=== PATIENT | female | born 1950 | race Caucasian/White ===

== ENCOUNTER 2023-01-14 16:14 | Observation (INO) | payer BC, MEDICARE ==
[2023-01-14 16:56] LABS: Absolute Neutrophil Ct (ANC) 4.17 x10^3/uL (1.4-6.9); Basophil (Absolute #) 0.07 x10^3/uL (0-0.4); Eosinophil % 3.1 % (0.00-5.0); Eosinophil (Absolute #) 0.22 x10^3/uL (0-0.5); Hematocrit 29.7 % (35-47); IMMATURE GRAN # 0.02 x10^3u/L (0.00-0.03); IMMATURE GRAN % 0.3 % (0.00-0.4); Lymphocyte (Absolute #) 2.09 x10^3/uL (1.0-4.6); Lymphocytes % 29.1 % (24.0-44.0); Mean Cell Volume 71.4 fL (78-100); Mean Corpuscular Hemoglobin 21.6 pg (26-32); Mean Corpuscular Hgb Concent. 30.3 g/dL (32-36); Mean Platelet Volume 8.6 fL (7.5-11.0); Monocyte (Absolute #) 0.61 x10^3/uL (0.0-1.3); Monocytes % 8.5 % (0.0-12.0); Platelet Count 501 x10^3/uL (150-450); Red Blood Count 4.16 x10^6/uL (4.1-5.4); Red Cell Distribution Width 27.4 % (11.5-14.0); White Blood Count 7.2 x10^3/uL (4.0-10.5)
[2023-01-14 17:19] LABS: ALBUMIN 4.1 g/dL (3.5-5.0); BILIRUBIN,TOTAL 0.5 mg/dL (0.2-1.3); Creatinine 1 1.05 mg/dL (0.52-1.04); EST GLOMERULAR FILTRATION RATE 54.6 ML/MIN; Potassium 4.3 mmol/L (3.5-5.1); Total Protein 7.3 g/dL (6.3-8.2)
[2023-01-14] MEDS ORDERED: Mylicon 80MG PO PRN (17:19)
[2023-01-14] MEDS ORDERED: ZOFRAN ODT 4 MG PO PRN (17:27)
[2023-01-14 17:35] LABS: INFLUENZA A NEGATIVE (NEGATIVE); INFLUENZA B NEGATIVE (NEGATIVE); RESPIRATORY SYNCTIAL VIRUS NEGATIVE (NEGATIVE); SARS-CoV-2 Xpert Express NEGATIVE (NEGATIVE)
[2023-01-14 19:18] LABS: Slide Review 1 YES
[2023-01-14 20:20] LABS: Appearance Clear (Clear); Bacteria Moderate /HPF (None Seen); Bilirubin Negative (Negative); Blood Negative (Negative); Epithelial Cells None Seen /HPF (None Seen); Glucose, Urine Negative (Negative); Ketones Negative (Negative); Leukocyte Esterase Large (Negative); Nitrite Negative (Negative); Ph 5.5 (4.6-8.0); Protein,Urine Dip Negative (Negative); RBC 0-2 /HPF (0-5); Specific Gravity <=1.005 (1.005-1.030); Urobilinogen 0.2 mg/dL (0.2); WBC 21-50 /HPF (0-5)
[2023-01-14 20:35] LABS: ADD URINE CULTURE? YES (NO)
[2023-01-14] MEDS: MELATONIN PO SCH (21:43)
[2023-01-14] MEDS: Lopressor 50 MG PO SCH (21:43)
--- NOTE | 2023-01-15 07:08 | PCM.HP.ADD ---
Addendum to History & Physical - History & Physical Addendum Addendum to History & Physical: This certifies that the History & Physical in the electronic chart reflects the current health status of the patient. If there are changes in the H&P these changes/exceptions are listed as follows.
[2023-01-15 07:52] LABS: Hematocrit 27.7 % (35-47); Hemoglobin 8.4 g/dL (12.0-16.0); Mean Cell Volume 70.7 fL (78-100); Mean Corpuscular Hemoglobin 21.4 pg (26-32); Mean Corpuscular Hgb Concent. 30.3 g/dL (32-36); Mean Platelet Volume 8.8 fL (7.5-11.0); Platelet Count 465 x10^3/uL (150-450); Red Blood Count 3.92 x10^6/uL (4.1-5.4); Red Cell Distribution Width 27.2 % (11.5-14.0); White Blood Count 6.6 x10^3/uL (4.0-10.5)
[2023-01-15] MEDS: ROCEPHIN 1 Gm-D5w 50 ml Bag** 1 G/50 ML IVPB IV SCH (08:42)
[2023-01-15 08:43] LABS: Slide Review YES
[2023-01-15 08:54] LABS: ANION GAP 9.6 MEQ/L (5-15); BLOOD UREA NITROGEN 11 mg/dL (7-17); CHLORIDE 104 mmol/L (98-107); Carbon Dioxide 30 mmol/L (22-30); Creatinine 1 0.57 mg/dL (0.52-1.04); EST GLOMERULAR FILTRATION RATE > 60.0 ML/MIN; Glucose 115 mg/dL (74-106); Potassium 3.6 mmol/L (3.5-5.1); SODIUM 140 mmol/L (137-145)
[2023-01-15] MEDS ORDERED: NON-FORMULARY ITEM (Apixaban [Eliquis] 5 MG Tablet) PO SCH (10:00)
[2023-01-15] MEDS ORDERED: NON-FORMULARY ITEM (Atorvastatin Calcium [Atorvastatin Calcium] 10 MG Tablet) PO SCH (10:00)
[2023-01-15] MEDS ORDERED: NON-FORMULARY ITEM (Fluoxetine Hcl [Fluoxetine Hcl] 40 MG Capsule) PO SCH (10:00)
[2023-01-15] MEDS ORDERED: Cardizem CD PO SCH (10:00)
[2023-01-15] MEDS: Lopressor 50 MG PO SCH (11:11)
[2023-01-15] MEDS: Cozaar 50 MG PO SCH (11:12)
[2023-01-15] MEDS: Protonix 40MG Tablet PO SCH (11:18)
[2023-01-15] MEDS: Prozac 20 MG PO SCH (11:18)
[2023-01-15] MEDS: ELIQUIS 2.5 MG TABLET PO SCH ×2 (11:18→21:50)
[2023-01-15] MEDS: Zocor 10MG PO SCH (11:18)
[2023-01-15] MEDS: LASIX 20 MG PO SCH (11:19)
[2023-01-15] MEDS: Docusate Sodium 100 MG PO SCH (11:19)
--- NOTE | 2023-01-15 11:25 | PCM.NOTE ---
Date and Time: 01/15/23 1120 Subjective Assessment: She has no complaints today. Overnight her HR was in the 60s (was 51 when arrived yesterday). In office yesterday on EKG was of course 38 bpm, afib. - Review of Systems Constitutional: No Fever Abdominal/Gastrointestinal: No Vomiting Objective Exam General Appearance: no apparent distress, alert Neurologic Exam: cooperative, normal mood/affect, other (halting speech and sometimes skips words) Skin Exam: normal color, warm, dry, No rash Eye Exam: eyes nml inspection Ears, Nose, Throat Exam: moist mucous membranes Neck Exam: normal inspection Respiratory Exam: normal breath sounds, lungs clear, No crackles/rales, No rhonchi, No wheezing Cardiovascular Exam: regular rate/rhythm, normal heart sounds, No murmur Gastrointestinal/Abdomen Exam: soft, normal bowel sounds, No tenderness, No distention, No mass, No guarding, No rebound Extremity Exam: normal inspection, No pedal edema, No swelling Back Exam: normal inspection, No rash OBJECTIVE DATA Vital Signs: Vital Signs - 24 hr Temp Pulse Resp BP Pulse Ox 01/15/23 11:10 97.8 F 63 16 151/71 94 L 01/15/23 06:37 98.2 F 63 14 171/81 95 01/15/23 04:00 97.1 F 63 19 131/77 95 01/14/23 23:41 98.1 F 61 16 145/74 96 01/14/23 20:00 97.9 F 61 16 143/70 96 01/14/23 16:42 97.7 F 52 L 17 147/70 96 Pain Assessment - Last Documented Pain Intensity 0 Intake and Output: Intake & Output 01/12/23 01/13/23 01/14/23 01/15/23 11:59 11:59 11:59 11:59 Intake Total 480 Balance 480 Weight 79.4 kg Lab Results: Lab Results-Last 24 Hours 01/14/23 01/14/23 01/14/23 Range/Units 16:50 16:50 16:50 WBC 7.2 (4.0-10.5) x10^3/uL RBC 4.16 (4.1-5.4) x10^6/uL Hgb 9.0 L (12.0-16.0) g/dL Hct 29.7 L (35-47) % MCV 71.4 L (78-100) fL MCH 21.6 L (26-32) pg MCHC 30.3 L (32-36) g/dL RDW 27.4 H (11.5-14.0) % Plt Count 501 H (150-450) x10^3/uL MPV 8.6 (7.5-11.0) fL Gran % 58.0 (36.0-66.0) % Immature Gran % (Auto) 0.3 (0.00-0.4) % Nucleat RBC Rel Count 0.0 (0.00-0.1) % Eos # (Auto) 0.22 (0-0.5) x10^3/uL Immature Gran # (Auto) 0.02 (0.00-0.03) x10^3u/L Absolute Lymphs (auto) 2.09 (1.0-4.6) x10^3/uL Absolute Monos (auto) 0.61 (0.0-1.3) x10^3/uL Absolute Nucleated RBC 0.00 (0.00-0.01) x10^3u/L Lymphocytes % 29.1 (24.0-44.0) % Monocytes % 8.5 (0.0-12.0) % Eosinophils % 3.1 (0.00-5.0) % Basophils % 1.0 (0.0-0.4) % Absolute Granulocytes 4.17 (1.4-6.9) x10^3/uL Basophils # 0.07 (0-0.4) x10^3/uL Sodium 141 (137-145) mmol/L Potassium 4.3 (3.5-5.1) mmol/L Chloride 103 (98-107) mmol/L Carbon Dioxide 31 H (22-30) mmol/L Anion Gap 11.0 (5-15) MEQ/L BUN 14 (7-17) mg/dL Creatinine 1.05 H (0.52-1.04) mg/dL Estimated GFR 54.6 ML/MIN Glucose 107 H (74-106) mg/dL POC Glucometer (74 to 106) mg/dL Calcium 9.0 (8.4-10.2) mg/dL Total Bilirubin 0.50 (0.2-1.3) mg/dL AST 26 (14-36) U/L ALT 20 (0-35) U/L Alkaline Phosphatase 70 (38-126) U/L Troponin I < 0.012 (0.000-0.034) ng/mL Serum Total Protein 7.3 (6.3-8.2) g/dL Albumin 4.1 (3.5-5.0) g/dL Prealbumin (17.6-36.0) mg/dL Urine Color (Yellow) Urine Appearance (Clear) Urine pH (4.6-8.0) Ur Specific Wink (1.005-1.030) Urine Protein (Negative) Urine Glucose (UA) (Negative) mg/dL Urine Ketones (Negative) Urine Blood (Negative) Urine Nitrite (Negative) Urine Bilirubin (Negative) Urine Urobilinogen (0.2) mg/dL Ur Leukocyte Esterase (Negative) Urine Microscopic RBC (0-5) /HPF Urine Microscopic WBC (0-5) /HPF Ur Epithelial Cells (None Seen) /HPF Urine Bacteria (None Seen) /HPF Urine Culture Reflexed (NO) Influenza Type A Ag (NEGATIVE) Influenza Type B Ag (NEGATIVE) RSV (PCR) (NEGATIVE) SARS-CoV-2 (PCR) (NEGATIVE) Slides for Path Review YES 01/14/23 01/14/23 01/14/23 Range/Units 16:50 17:46 20:00 WBC (4.0-10.5) x10^3/uL RBC (4.1-5.4) x10^6/uL Hgb (12.0-16.0) g/dL Hct (35-47) % MCV (78-100) fL MCH (26-32) pg MCHC (32-36) g/dL RDW (11.5-14.0) % Plt Count (150-450) x10^3/uL MPV (7.5-11.0) fL Gran % (36.0-66.0) % Immature Gran % (Auto) (0.00-0.4) % Nucleat RBC Rel Count (0.00-0.1) % Eos # (Auto) (0-0.5) x10^3/uL Immature Gran # (Auto) (0.00-0.03) x10^3u/L Absolute Lymphs (auto) (1.0-4.6) x10^3/uL Absolute Monos (auto) (0.0-1.3) x10^3/uL Absolute Nucleated RBC (0.00-0.01) x10^3u/L Lymphocytes % (24.0-44.0) % Monocytes % (0.0-12.0) % Eosinophils % (0.00-5.0) % Basophils % (0.0-0.4) % Absolute Granulocytes (1.4-6.9) x10^3/uL Basophils # (0-0.4) x10^3/uL Sodium (137-145) mmol/L Potassium (3.5-5.1) mmol/L Chloride (98-107) mmol/L Carbon Dioxide (22-30) mmol/L Anion Gap (5-15) MEQ/L BUN (7-17) mg/dL Creatinine (0.52-1.04) mg/dL Estimated GFR ML/MIN Glucose (74-106) mg/dL POC Glucometer (74 to 106) mg/dL Calcium (8.4-10.2) mg/dL Total Bilirubin (0.2-1.3) mg/dL AST (14-36) U/L ALT (0-35) U/L Alkaline Phosphatase (38-126) U/L Troponin I (0.000-0.034) ng/mL Serum Total Protein (6.3-8.2) g/dL Albumin (3.5-5.0) g/dL Prealbumin 21.38 (17.6-36.0) mg/dL Urine Color Yellow (Yellow) Urine Appearance Clear (Clear) Urine pH 5.5 (4.6-8.0) Ur Specific Wink <=1.005 (1.005-1.030) Urine Protein Negative (Negative) Urine Glucose (UA) Negative (Negative) mg/dL Urine Ketones Negative (Negative) Urine Blood Negative (Negative) Urine Nitrite Negative (Negative) Urine Bilirubin Negative (Negative) Urine Urobilinogen 0.2 (0.2) mg/dL Ur Leukocyte Esterase Large A (Negative) Urine Microscopic RBC 0-2 (0-5) /HPF Urine Microscopic WBC 21-50 A (0-5) /HPF Ur Epithelial Cells None Seen (None Seen) /HPF Urine Bacteria Moderate A (None Seen) /HPF Urine Culture Reflexed YES (NO) Influenza Type A Ag NEGATIVE (NEGATIVE) Influenza Type B Ag NEGATIVE (NEGATIVE) RSV (PCR) NEGATIVE (NEGATIVE) SARS-CoV-2 (PCR) NEGATIVE (NEGATIVE) Slides for Path Review 01/15/23 01/15/23 01/15/23 Range/Units 07:40 07:40 08:11 WBC 6.6 (4.0-10.5) x10^3/uL RBC 3.92 L (4.1-5.4) x10^6/uL Hgb 8.4 L (12.0-16.0) g/dL Hct 27.7 L (35-47) % MCV 70.7 L (78-100) fL MCH 21.4 L (26-32) pg MCHC 30.3 L (32-36) g/dL RDW 27.2 H (11.5-14.0) % Plt Count 465 H (150-450) x10^3/uL MPV 8.8 (7.5-11.0) fL Gran % (36.0-66.0) % Immature Gran % (Auto) (0.00-0.4) % Nucleat RBC Rel Count (0.00-0.1) % Eos # (Auto) (0-0.5) x10^3/uL Immature Gran # (Auto) (0.00-0.03) x10^3u/L Absolute Lymphs (auto) (1.0-4.6) x10^3/uL Absolute Monos (auto) (0.0-1.3) x10^3/uL Absolute Nucleated RBC (0.00-0.01) x10^3u/L Lymphocytes % (24.0-44.0) % Monocytes % (0.0-12.0) % Eosinophils % (0.00-5.0) % Basophils % (0.0-0.4) % Absolute Granulocytes (1.4-6.9) x10^3/uL Basophils # (0-0.4) x10^3/uL Sodium 140 (137-145) mmol/L Potassium 3.6 (3.5-5.1) mmol/L Chloride 104 (98-107) mmol/L Carbon Dioxide 30 (22-30) mmol/L Anion Gap 9.6 (5-15) MEQ/L BUN 11 (7-17) mg/dL Creatinine 0.57 (0.52-1.04) mg/dL Estimated GFR > 60.0 ML/MIN Glucose 115 H (74-106) mg/dL POC Glucometer 121 H (74 to 106) mg/dL Calcium 9.0 (8.4-10.2) mg/dL Total Bilirubin (0.2-1.3) mg/dL AST (14-36) U/L ALT (0-35) U/L Alkaline Phosphatase (38-126) U/L Troponin I (0.000-0.034) ng/mL Serum Total Protein (6.3-8.2) g/dL Albumin (3.5-5.0) g/dL Prealbumin (17.6-36.0) mg/dL Urine Color (Yellow) Urine Appearance (Clear) Urine pH (4.6-8.0) Ur Specific Wink (1.005-1.030) Urine Protein (Negative) Urine Glucose (UA) (Negative) mg/dL Urine Ketones (Negative) Urine Blood (Negative) Urine Nitrite (Negative) Urine Bilirubin (Negative) Urine Urobilinogen (0.2) mg/dL Ur Leukocyte Esterase (Negative) Urine Microscopic RBC (0-5) /HPF Urine Microscopic WBC (0-5) /HPF Ur Epithelial Cells (None Seen) /HPF Urine Bacteria (None Seen) /HPF Urine Culture Reflexed (NO) Influenza Type A Ag (NEGATIVE) Influenza Type B Ag (NEGATIVE) RSV (PCR) (NEGATIVE) SARS-CoV-2 (PCR) (NEGATIVE) Slides for Path Review YES Assessment/Plan (1) Bradycardia Current Visit: Yes Status: Acute Assessment & Plan: Was 38 bpm in office; here has been 51-60s. I decreased her toprol from 75mg po BID to 50mg po BID. She is also on cardizem (was on both at [facility], although was on cardizem IR TID at that time, we just changed to ER once daily when she was sent home recently). Code(s): R00.1 - BRADYCARDIA, UNSPECIFIED (2) Atrial fibrillation Current Visit: Yes Status: Acute Qualifiers: Atrial fibrillation type: longstanding persistent Qualified Code(s): I48.11 - Longstanding persistent atrial fibrillation Assessment & Plan: On Eliquis. Code(s): I48.91 - UNSPECIFIED ATRIAL FIBRILLATION (3) UTI (urinary tract infection) Current Visit: Yes Status: Acute Qualifiers: Urinary tract infection type: acute cystitis Hematuria presence: without hematuria Qualified Code(s): N30.00 - Acute cystitis without hematuria Assessment & Plan: On rocephin IV day #1. Ucx pending. Code(s): N39.0 - URINARY TRACT INFECTION, SITE NOT SPECIFIED (4) Hx of completed stroke Current Visit: Yes Status: Acute Assessment & Plan: With R sided hemiparesis and some memory problems. Stroke happened in Jul 2022. Was in [facility] afterward until December 28. Code(s): Z86.73 - PRSNL HX OF TIA (TIA), AND CEREB INFRC W/O RESID DEFICITS (5) Anemia Current Visit: Yes Status: Acute Qualifiers: Anemia type: iron deficiency Iron deficiency anemia type: chronic blood loss Qualified Code(s): D50.0 - Iron deficiency anemia secondary to blood loss (chronic) Assessment & Plan: Hx PUD and was inpatient for acute GI bleed within the last 2 weeks. Code(s): D64.9 - ANEMIA, UNSPECIFIED (6) Vascular dementia Current Visit: Yes Status: Suspected Qualifiers: Dementia severity: moderate Dementia behavioral or psychological symptom: with anxiety Qualified Code(s): F01.B4 - Vascular dementia, moderate, with anxiety Assessment & Plan: Per her POA Logan Lackey, pt was not having many memory issues (occasional) until her CVA in Jul. However has noticed rapid decline in the past 1 mo. He had been seeing her every week at [facility], and she was having trouble keeping dates straight until then (would call him many times to check the day that appointments were happening, etc). He wondered if she's had another stroke. When she went into the hospital for GI bleed she was babbling, he thought maybe she had another stroke then. Check MRI. Code(s): F01.50 - VASCULAR DEMENTIA, UNSP SEVERITY, WITHOUT BEH/PSYCH/MOOD/ANX (7) HTN (hypertension) Current Visit: Yes Status: Chronic Code(s): I10 - ESSENTIAL (PRIMARY) HYPERTENSION (8) Hyperglycemia Current Visit: Yes Status: Acute Assessment & Plan: check a1c Code(s): R73.9 - HYPERGLYCEMIA, UNSPECIFIED
--- NOTE | 2023-01-15 14:52 | XRAY ---
Indication: Vascular dementia. History CVA. Sagittal, coronal, and axial MRI brain performed using pre and post T1, T2, FLAIR, diffusion, and ADC sequences. 15 cc Dotarem contrast used. Comparison: None Age-appropriate global atrophy and moderate periventricular degenerative micro-ischemia signal bilaterally. Lesser minimal degenerative micro-ischemia signal seen in the brainstem. Largest focus old left temporoparietal infarct with surrounding gliosis. Basal ganglia demonstrates prominent Virchow George spaces bilaterally. Diffusion images tiny focus restricted signal left mid periventricular white matter favoring acute micro-ischemia. No acute intracranial hemorrhage, hydrocephalus, or mass effect. Following gadolinium, no abnormal enhancing intra or extra-axial mass. 7/8 cranial nerve complex bilaterally symmetric. Normal flow void signal within the major intracerebral circulation. Normal appearing craniocervical junction and sella turcica. Inferior left maxillary sinus demonstrates 1.7 cm polyp versus retention cyst. Remaining paranasal sinuses are clear. Impression: 1. Tiny focus acute micro-ischemia left periventricular white matter without acute hemorrhage or mass effect. 2. Old left temporoparietal infarct. 3. Atrophy and degenerative micro-ischemia within normal limits for patient's age. 4. Negative contrast exam. 5. Incidental left maxillary sinus polyp/retention cyst.
[2023-01-15] MEDS ORDERED: TYLENOL 325 MG PO PRN (18:41)
[2023-01-15] MEDS: MELATONIN PO SCH (21:50)
[2023-01-16 07:13] LABS: Absolute Neutrophil Ct (ANC) 4.37 x10^3/uL (1.4-6.9); Basophil (Absolute #) 0.07 x10^3/uL (0-0.4); Eosinophil % 2.7 % (0.00-5.0); Hematocrit 28.5 % (35-47); Hemoglobin 8.7 g/dL (12.0-16.0); IMMATURE GRAN # 0.02 x10^3u/L (0.00-0.03); IMMATURE GRAN % 0.3 % (0.00-0.4); Lymphocyte (Absolute #) 1.99 x10^3/uL (1.0-4.6); Lymphocytes % 27.1 % (24.0-44.0); Mean Cell Volume 69.9 fL (78-100); Mean Corpuscular Hemoglobin 21.3 pg (26-32); Mean Corpuscular Hgb Concent. 30.5 g/dL (32-36); Mean Platelet Volume 8.3 fL (7.5-11.0); Monocyte (Absolute #) 0.68 x10^3/uL (0.0-1.3); Monocytes % 9.3 % (0.0-12.0); Neutrophil % 59.6 % (36.0-66.0); Platelet Count 480 x10^3/uL (150-450); Red Blood Count 4.08 x10^6/uL (4.1-5.4); Red Cell Distribution Width 26.8 % (11.5-14.0); White Blood Count 7.3 x10^3/uL (4.0-10.5)
[2023-01-16 08:41] LABS: ANION GAP 11.8 MEQ/L (5-15); BLOOD UREA NITROGEN 11 mg/dL (7-17); CHLORIDE 103 mmol/L (98-107); Calcium 8.7 mg/dL (8.4-10.2); Carbon Dioxide 29 mmol/L (22-30); Creatinine 1 0.48 mg/dL (0.52-1.04); EST GLOMERULAR FILTRATION RATE > 60.0 ML/MIN; Glucose 118 mg/dL (74-106); SODIUM 141 mmol/L (137-145)
--- NOTE | 2023-01-16 08:51 | PCM.DS ---
Discharge Summary Date of Admission: 01/14/23 16:14 Admitting Physician: VALERIA JO Consults: Consults on Case 01/15/23 07:09 Consult Cardiology ROUTINE Primary Care Provider: VALERIA JO Allergies Allergies No Known Drug Allergies Allergy (Unverified 01/14/23 17:24) Hospital Summary - Hospital Course Hospital Course: Pt is a 72 yo female pt of mine with afib, hx CVA (and R hemiparesis), and vascular dementia with recent GI bleed (requiring transfusion 1 unit) who was admitted from office directly with severe bradycardia (HR 38 on EKG). We decreased her metoprolol initially; Dr. Karri Prado was consulted, thank you, and advised holding betablockers and CCB and restart once HR consistently in the 70s. Will restart Toprol XL at 25mg po daily; may increase incrementally to 75mg po daily as needed, and add in cardizem if necessary after that. I have relayed this to POA. Pt also had UTI, treated wiht 2d of IV rocephin. Will send home on several days of keflex, pending final culture result. - Vitals & Intake/Output Vital Signs: Vital Signs Temperature 97.3 F 01/16/23 07:59 Pulse Rate 80 01/16/23 07:59 Respiratory Rate 16 01/16/23 07:59 Blood Pressure 161/90 01/16/23 07:59 O2 Sat by Pulse Oximetry 95 01/16/23 07:04 Intake & Output: Intake & Output 01/13/23 01/14/23 01/15/23 01/16/23 11:59 11:59 11:59 11:59 Intake Total 480 1080 Output Total 1 Balance 480 1079 Weight 79.4 kg - Lab Result Diagrams: 01/16/23 07:07 01/15/23 07:40 Lab Results-Last 24 Hrs: Lab Results-Last 24 Hours 01/15/23 01/15/23 01/15/23 Range/Units 07:40 07:43 18:39 WBC (4.0-10.5) x10^3/uL RBC (4.1-5.4) x10^6/uL Hgb (12.0-16.0) g/dL Hct (35-47) % MCV (78-100) fL MCH (26-32) pg MCHC (32-36) g/dL RDW (11.5-14.0) % Plt Count (150-450) x10^3/uL MPV (7.5-11.0) fL Gran % (36.0-66.0) % Immature Gran % (Auto) (0.00-0.4) % Nucleat RBC Rel Count (0.00-0.1) % Eos # (Auto) (0-0.5) x10^3/uL Immature Gran # (Auto) (0.00-0.03) x10^3u/L Absolute Lymphs (auto) (1.0-4.6) x10^3/uL Absolute Monos (auto) (0.0-1.3) x10^3/uL Absolute Nucleated RBC (0.00-0.01) x10^3u/L Lymphocytes % (24.0-44.0) % Monocytes % (0.0-12.0) % Eosinophils % (0.00-5.0) % Basophils % (0.0-0.4) % Absolute Granulocytes (1.4-6.9) x10^3/uL Basophils # (0-0.4) x10^3/uL Sodium 140 (137-145) mmol/L Potassium 3.6 (3.5-5.1) mmol/L Chloride 104 (98-107) mmol/L Carbon Dioxide 30 (22-30) mmol/L Anion Gap 9.6 (5-15) MEQ/L BUN 11 (7-17) mg/dL Creatinine 0.57 (0.52-1.04) mg/dL Estimated GFR > 60.0 ML/MIN Glucose 115 H (74-106) mg/dL POC Glucometer (74 to 106) mg/dL Hemoglobin A1c 5.87 (4.5-6.0) % Calcium 9.0 (8.4-10.2) mg/dL TSH 3rd Generation 0.204 L (0.47-4.68) mIU/L 01/16/23 01/16/23 Range/Units 07:07 07:21 WBC 7.3 (4.0-10.5) x10^3/uL RBC 4.08 L (4.1-5.4) x10^6/uL Hgb 8.7 L (12.0-16.0) g/dL Hct 28.5 L (35-47) % MCV 69.9 L (78-100) fL MCH 21.3 L (26-32) pg MCHC 30.5 L (32-36) g/dL RDW 26.8 H (11.5-14.0) % Plt Count 480 H (150-450) x10^3/uL MPV 8.3 (7.5-11.0) fL Gran % 59.6 (36.0-66.0) % Immature Gran % (Auto) 0.3 (0.00-0.4) % Nucleat RBC Rel Count 0.0 (0.00-0.1) % Eos # (Auto) 0.20 (0-0.5) x10^3/uL Immature Gran # (Auto) 0.02 (0.00-0.03) x10^3u/L Absolute Lymphs (auto) 1.99 (1.0-4.6) x10^3/uL Absolute Monos (auto) 0.68 (0.0-1.3) x10^3/uL Absolute Nucleated RBC 0.00 (0.00-0.01) x10^3u/L Lymphocytes % 27.1 (24.0-44.0) % Monocytes % 9.3 (0.0-12.0) % Eosinophils % 2.7 (0.00-5.0) % Basophils % 1.0 (0.0-0.4) % Absolute Granulocytes 4.37 (1.4-6.9) x10^3/uL Basophils # 0.07 (0-0.4) x10^3/uL Sodium (137-145) mmol/L Potassium (3.5-5.1) mmol/L Chloride (98-107) mmol/L Carbon Dioxide (22-30) mmol/L Anion Gap (5-15) MEQ/L BUN (7-17) mg/dL Creatinine (0.52-1.04) mg/dL Estimated GFR ML/MIN Glucose (74-106) mg/dL POC Glucometer 134 H (74 to 106) mg/dL Hemoglobin A1c (4.5-6.0) % Calcium (8.4-10.2) mg/dL TSH 3rd Generation (0.47-4.68) mIU/L Micro Results-Entire Visit: Microbiology 01/14/23 20:00 Urine Culture - Final Urine, Void Escherichia Coli Accuchecks Date 01/16/23 Time 07:58 - Radiology Exams Ordered Rad Exams-Entire Visit: Radiology Procedures Category Date Time Status MRI BRAIN W & W/O CONTRAST [MRI] Routine Exams 01/15/23 13:43 Completed Discharge Exam General Appearance: no apparent distress, alert Neurologic Exam: cooperative, normal mood/affect Eye Exam: eyes nml inspection Ears, Nose, Throat Exam: moist mucous membranes Neck Exam: normal inspection Respiratory Exam: normal breath sounds, lungs clear, No crackles/rales, No rhonchi, No wheezing Cardiovascular Exam: normal heart sounds, irregular (reg rate), No murmur Gastrointestinal/Abdomen Exam: soft, normal bowel sounds, No tenderness, No distention, No mass, No guarding, No rebound Extremity Exam: normal inspection, No pedal edema, No swelling Skin Exam: normal color, warm, dry, No rash Final Diagnosis/Problem List - Final Discharge Diagnosis/Problem (1) Bradycardia Current Visit: Yes Status: Resolved Assessment & Plan: Holding beta trista and CCB. HR in 70s - if consistent, can restart metoprolol XR 25mg po daily, and incrementally increase IF needed to 75mg po daily. Code(s): R00.1 - BRADYCARDIA, UNSPECIFIED (2) Atrial fibrillation Current Visit: Yes Status: Chronic Assessment & Plan: Can add in diltiazem eventually but only if needed to control rate. Code(s): I48.91 - UNSPECIFIED ATRIAL FIBRILLATION (3) UTI (urinary tract infection) Current Visit: Yes Status: Acute Assessment & Plan: has frequent UTIs. Will treat with 5d total medicine - culture is back and susceptible to rocephin/1st gen cephalosporin. Code(s): N39.0 - URINARY TRACT INFECTION, SITE NOT SPECIFIED (4) Hx of completed stroke Current Visit: Yes Status: Acute Code(s): Z86.73 - PRSNL HX OF TIA (TIA), AND CEREB INFRC W/O RESID DEFICITS (5) Anemia Current Visit: Yes Status: Chronic Assessment & Plan: stable Code(s): D64.9 - ANEMIA, UNSPECIFIED (6) Vascular dementia Current Visit: Yes Status: Suspected Code(s): F01.50 - VASCULAR DEMENTIA, UNSP SEVERITY, WITHOUT BEH/PSYCH/MOOD/ANX (7) HTN (hypertension) Current Visit: Yes Status: Chronic Code(s): I10 - ESSENTIAL (PRIMARY) HYPERTENSION (8) Hyperglycemia Current Visit: Yes Status: Acute Code(s): R73.9 - HYPERGLYCEMIA, UNSPECIFIED - Discharge Disposition: Home, Self-Care Condition: Stable Prescriptions: New Lactobacillus Acidophilus [Acidophilus TABLET] 1 tab PO BID 5 Days #10 tablet Cephalexin Mh 500 mg [Keflex 500 mg] 500 mg PO Q6H 3 Days #12 cap Metoprolol Succinate 25 mg Xl* [Toprol-Xl 25MG Tablets] 25 mg PO DAILY #30 tab Continue Simethicone 80 mg [Mylicon 80MG] 80 mg PO DAILY PRN PRN PRN Reason: Indigestion PANTOPRAZOLE 40 mg Tablet [Protonix 40MG Tablet] 40 mg PO DAILY Ondansetron ODT 4 MG [Zofran Odt 4 mg] 8 mg PO BID PRN PRN PRN Reason: Nausea Melatonin 3 mg PO HS Losartan Potassium 50 mg [Cozaar 50 MG] 100 mg PO DAILY Furosemide 20 mg [Lasix 20 mg] 20 mg PO DAILY Fluoxetine HCl 40 mg pe PO DAILY Docusate Sodium 100 mg [Docusate Sodium 100 MG] 100 mg PO DAILY Atorvastatin Calcium 10 mg PO DAILY Apixaban [Eliquis] 5 mg PO BID Discontinued dilTIAZem HCl [Cardizem Cd] 180 mg PO DAILY Metoprolol Tartrate 50 mg [Lopressor 50 MG] 50 mg PO BID Follow up with: VAELRIA JO [Primary Care Provider] - KARRI PRADO MD [CONSULTING PHYSICIAN] -
[2023-01-16] MEDS ORDERED: K-LYTE PO ONE (08:58)
[2023-01-16] MEDS: Cozaar 50 MG PO SCH (09:05)
[2023-01-16] MEDS: Prozac 20 MG PO SCH (09:05)
[2023-01-16] MEDS: Protonix 40MG Tablet PO SCH (09:05)
[2023-01-16] MEDS: ROCEPHIN 1 Gm-D5w 50 ml Bag** 1 G/50 ML IVPB IV SCH (09:06)
[2023-01-16] MEDS: Zocor 10MG PO SCH (09:06)
[2023-01-16] MEDS: Docusate Sodium 100 MG PO SCH (09:06)
[2023-01-16] MEDS: ELIQUIS 2.5 MG TABLET PO SCH (09:06)
[2023-01-16] MEDS: LASIX 20 MG PO SCH (09:06)
[2023-01-16 09:11] LABS: Slide Review 1 YES
--- NOTE | 2023-01-16 10:30 | CONS ---
TELE-CARDIOLOGY CONSULT DATE: 01/15/2023 REASON FOR CONSULT: Bradycardia, atrial fibrillation. HISTORY: Cheyanne Loo is a 72-year-old woman with a history of atrial fibrillation with acute CVA in July 2022. She is currently on anticoagulation. She also has history of diabetes, hypertension and mild aortic stenosis. She was previously seen by my partner, Dr. Jeffery Barnes, bradycardia in the setting of atrial fibrillation as well as urinary tract infection. She is currently on IV ceftriaxone. Heart rate on admission was in the high 40's to low 50's. She was on both diltiazem and metoprolol, both have been held and her heart rate has improved to the 70's. She currently denies any dizziness, chest pain, shortness of breath, orthopnea or paroxysmal nocturnal dyspnea. She is currently eating dinner with no issues. REVIEW OF SYSTEMS: Fourteen system review performed. Pertinent positives noted in the history of present illness otherwise negative. PAST MEDICAL HISTORY: As noted in the history of present illness. ALLERGIES: NKDA. MEDICATIONS: Current medications reviewed, see EMR for full details. She is on Eliquis. Metoprolol and diltiazem have been held. PHYSICAL EXAMINATION: Physical exam reviewed, stable. Heart rate currently in the 70's. She is No acute distress. She is conversant. She is very hard of hearing. She is eating dinner with no distress. This was all described through observation through video conferencing system. LAB DATA AND TESTS: LABORATORY: Laboratory data reviewed. UA consistent with urinary tract infection. Potassium 3.6, creatinine 0.57, BUN 11. Urine culture showed gram-negative rods. Hemoglobin 8.4, white blood cell count 6.6, PLT count 465,000. RADIOLOGIC: EKG demonstrates atrial fibrillation with heart rate in the high 30's to low 40's on admission as noted above, heart rate has improved. She has an old anteroseptal infarct pattern on EKG. IMPRESSION: 1) Atrial fibrillation with slow ventricular response with heart rate as low as the high 30's and low 40's that has significantly improved with holding beta-trista and calcium channel trista. She is currently on Eliquis. She does have a history of CVA and previous transient ischemic attack. She is clearly at high thromboembolic risk. 2) Mild aortic stenosis on previous echo from 2020. 3) Active urinary tract infection with gram-negative rods. RECOMMENDATIONS: I would continue Eliquis. I would also hold all AV sofía agents for now. If heart rate is consistently rising could consider the addition of low dose beta-trista such as metoprolol succinate 25 mg daily. I would avoid dual AV sofía agents and gradually titrate beta trista as needed for heart rate control. Continue IV antibiotics and adjust accordingly based on urine culture and sent urine cultures. As Dr. Jeffery Barnes will be leaving the practice in a few months, I will plan to follow up with her in the office after discharge.
[2023-01-16 12:18] VITALS: BP 146/81; PULSE 83; O2SAT 94
[2023-01-16 12:57] LABS: ANION GAP 12.4 MEQ/L (5-15); BLOOD UREA NITROGEN 11 mg/dL (7-17); CHLORIDE 101 mmol/L (98-107); Calcium 8.8 mg/dL (8.4-10.2); Carbon Dioxide 31 mmol/L (22-30); Creatinine 1 0.53 mg/dL (0.52-1.04); EST GLOMERULAR FILTRATION RATE > 60.0 ML/MIN; Glucose 121 mg/dL (74-106); Potassium 4.1 mmol/L (3.5-5.1); SODIUM 141 mmol/L (137-145)
[2023-01-16] MEDS ORDERED: Toprol-Xl 25MG Tablets PO ONE (13:30)
== END 2023-01-16 14:40 | disposition home or self-care (01) ==
LOC: MED SURG 16:14
PROVIDERS: ADMIT Family Medicine; ATTEND Family Medicine
DX: R00.1 Bradycardia, unspecified (principal); I48.91 Unspecified atrial fibrillation; N39.0 Urinary tract infection, site not specified; Z86.73 Personal history of transient ischemic attack (TIA), and cerebral infarction without residual deficits; D64.9 Anemia, unspecified; F01.50 Vascular dementia, unspecified severity, without behavioral disturbance, psychotic disturbance, mood disturbance, and anxiety; I10 Essential (primary) hypertension; E11.65 Type 2 diabetes mellitus with hyperglycemia; Z79.01 Long term (current) use of anticoagulants; Z79.899 Other long term (current) drug therapy; Z20.828 Contact with and (suspected) exposure to other viral communicable diseases
CPT/HCPCS: 0241U; 36415; 70553; 80048; 80053; 81001; 82947; 83036; 83735; 84134; 84439; 84443; 84480; 84484; 85025; 85027; 87077; 87086; 87186; 93268; 94762; G0378; G0379; Q3014; J0696; A9270-GY

== ENCOUNTER 2023-01-24 09:20 | Observation (INO) | payer BC ==
[2023-01-24] MEDS ORDERED: Zofran 4 MG/2 ML VIAL IV ONE (09:51)
[2023-01-24] MEDS ORDERED: SUBLIMAZE 100 MCG/2 ML IV ONE (09:51)
--- NOTE | 2023-01-24 10:08 | ERPHSYRPT ---
- History of Present Illness Time Seen by Provider: 01/24/23 09:49 Historian: patient, family Exam Limitations: no limitations Patient Subjective Stated Complaint: Pt was at another hospital this past week for a GI bleed and they cauterized the ulcer and Friday her hemoglobin was 8 and pt continues to feel sick and saw Dr. العلي yesterday and said that if she continues to feel this way to take her into the ER to be admitted to the hospital, pt has abdominal pain and is constipated Triage Nursing Assessment: Pt brought by nephew to the ER, tachycardic, hypertensive, rates pain as 7/10, pain in lower abdomen, pain with palpatation, pt hasn't been able to sleep and she is very lethargic and appears to be falling asleep now, pulses normal, right arm almost flacid due to stroke a few years ago, showing signs of dementia, unable to stand on her own and requires 2 people because her legs begin shaking due to being so weak, pt has only been able to drink Ensure and not eat any food since Friday Physician History: 72 years old female with history of atrial fibrillation on Eliquis/metoprolol, congestive heart failure, hypertension, hyperlipidemia, previous stroke with right-sided weakness, recent admission at another facility needing transfusion for possible GI bleed presented in the ER with abdominal pain more in the upper abdomen dull aching to cramping constant without any significant aggravating or relieving factors with associated nausea but no vomiting. Patient feels weak fatigued tired all the time. Patient was discharged from hospital few days ago, was evaluated at primary care ED after that and does not feel any improvement and is sent in here for further evaluation by PCP. Timing/Duration: constant, gradual onset, worse Activities at Onset: rest Quality: aching, cramping Abdominal Pain Onset Location: generalized abdomen Pain Radiation: no radiation Severity of Pain-Max: moderate Severity of Pain-Current: moderate Modifying Factors: Improves With: nothing Associated Symptoms: nausea Allergies/Adverse Reactions: No Known Drug Allergies Allergy (Verified 01/24/23 10:56) Home Medications: Apixaban [Eliquis] 5 mg PO BID 01/14/23 [History] Atorvastatin Calcium 10 mg PO DAILY 01/14/23 [History] Docusate Sodium 100 mg [Docusate Sodium 100 MG] 100 mg PO DAILY PRN 01/14/23 [History] Fluoxetine HCl 40 mg pe PO DAILY 01/14/23 [History] Furosemide 20 mg [Lasix 20 mg] 20 mg PO DAILY 01/14/23 [History] Losartan Potassium 50 mg [Cozaar 50 MG] 50 mg PO DAILY 01/14/23 [History] Melatonin 5 mg PO HS 01/14/23 [History] Ondansetron ODT 4 MG [Zofran Odt 4 mg] 4 mg PO UD PRN 01/14/23 [History] PANTOPRAZOLE 40 mg Tablet [Protonix 40MG Tablet] 40 mg PO DAILY 01/14/23 [History] Hx Influenza Vaccination/Date Given: Yes Hx Pneumococcal Vaccination/Date Given: Yes Travel Risk - International Travel Have you traveled outside of the country in past 3 weeks: No - Coronavirus Screening Are you exhibiting any of the following symptoms?: No Close contact with a COVID-19 positive Pt in past 14-21 Days: No - Vaccine Status Have you recieved a Covid-19 vaccination: Yes House Director: Unknown - Vaccination Dates Dates if Unknown: unknown - Review of Systems Constitutional: Fatigue, Weakness Eyes: No Symptoms Ears, Nose, & Throat: No Symptoms Respiratory: No Symptoms Cardiac: No Symptoms Abdominal/Gastrointestinal: Abdominal Pain, Nausea Genitourinary Symptoms: No Symptoms Musculoskeletal: Arthralgias Skin: No Symptoms Neurological: No Headache Psychological: No Symptoms Endocrine: No Symptoms Hematologic/Lymphatic: No Symptoms Immunological/Allergic: No Symptoms - Past Medical History Pertinent Past Medical History: Yes Neurological History: Stroke ENT History: Macular Degeneration Cardiac History: Arrhythmia, Hypertension Respiratory History: No Pertinent History Endocrine Medical History: No Pertinent History GI Medical History: GERD, GI Bleed History: No Pertinent History Psycho-Social History: Depression Female Reproductive Disorders: No Pertinent History Other Medical History: anemia, right hemiplegia, afib, aphasia, dysphagia, congenital hammer toe right foot, diabetes prior to lap band. Was in hospital last week (Friday through ) in [place] for upper GI bleed - Past Surgical History Past Surgical History: Yes Neuro Surgical History: No Pertinent History Cardiac: No Pertinent History Respiratory: No Pertinent History Gastrointestinal: No Pertinent History Genitourinary: No Pertinent History Musculoskeletal: No Pertinent History Female Surgical History: No Pertinent History Other Surgical History: Lap band procedure at least 10 -12 years ago - Social History Smoking Status: Never smoker Exposure to second hand smoke: No Drug Use: none Patient Lives Alone: Yes (lives next to nephew) - Nursing Vital Signs Nursing Vital Signs: Initial Vital Signs Temperature 98.0 F 01/24/23 09:36 Pulse Rate 115 H 01/24/23 09:36 Respiratory Rate 23 01/24/23 09:36 Blood Pressure 168/98 01/24/23 09:36 O2 Sat by Pulse Oximetry 95 01/24/23 09:36 Pain Scale Pain Intensity 7 - Physical Exam General Appearance: no apparent distress, alert Eye Exam: PERRL/EOMI Ears, Nose, Throat Exam: normal ENT inspection Neck Exam: normal inspection, supple, full range of motion Respiratory Exam: normal breath sounds, lungs clear Cardiovascular Exam: normal heart sounds, tachycardia, irregular Gastrointestinal/Abdomen Exam: soft, normal bowel sounds, tenderness (Mild generalized tenderness more in the upper abdomen) Back Exam: normal inspection Extremity Exam: normal inspection Neurologic Exam: alert, oriented x 3, cooperative Skin Exam: normal color SpO2 Interpretation: normal SpO2: 95 O2 Delivery: Room Air - Course EKG Interpreted by Me: RATE ([id number]), A-fib, NORMAL AXIS, NORMAL INTERVALS, Q-wave, Non-specific ST Changes Ordered Tests: Active Orders 24 hr Category Date Time Status EKG-ER Only STAT Care 01/24/23 09:51 Active IV Insertion STAT Care 01/24/23 09:51 Active NPO (ED) STAT Care 01/24/23 09:51 Active ABDOMEN AND PELVIS W/0 CONTRAS [CT] Stat Exams 01/24/23 09:52 Completed AMYLASE Stat Lab 01/24/23 10:10 Completed BLOOD CULTURE Stat Lab 01/24/23 11:37 Received CBC W DIFF Stat Lab 01/24/23 10:10 Completed CMP Stat Lab 01/24/23 10:10 Completed CULTURE,URINE Stat Lab 01/24/23 10:28 Received LIPASE Stat Lab 01/24/23 10:10 Completed Lactic Acid Stat Lab 01/24/23 09:51 Completed PROCALCITONIN Stat Lab 01/24/23 11:37 Received TROPONIN Q4H Lab 01/24/23 10:10 Completed TROPONIN Q4H Lab 01/24/23 14:00 Ordered TROPONIN Q4H Lab 01/24/23 18:00 Ordered UA W/RFX UR CULTURE Stat Lab 01/24/23 10:28 Completed Transfer Order Routine Transfer 01/24/23 Ordered Medication Summary Generic Name Dose Route Start Last Admin Trade Name Efrain PRN Reason Stop Dose Admin Sodium Chloride 1,000 mls @ 100 mls/hr 01/24/23 10:00 01/24/23 10:31 Sodium Chloride 0.9% 1000 Ml IV 02/23/23 09:59 100 mls/hr .Q10H ESTELLA Administration Discontinued Medications Generic Name Dose Route Start Last Admin Trade Name Efrain PRN Reason Stop Dose Admin Fentanyl Citrate 50 mcg 01/24/23 09:51 01/24/23 10:33 Fentanyl Citrate 100 Mcg/2 Ml* Vial IV 01/24/23 09:52 50 mcg STAT ONE Administration Fentanyl Citrate Confirm 01/24/23 10:17 Fentanyl Citrate 100 Mcg/2 Ml* Vial Administered 01/24/23 10:18 Dose 100 mcg .ROUTE .STK-MED ONE Piperacillin Sod/Tazobactam 100 mls @ 200 mls/hr 01/24/23 11:13 01/24/23 11:22 Sod 3.375 gm/ Sodium Chloride IV 01/24/23 11:42 200 mls/hr STAT ONE Administration Sodium Chloride Confirm 01/24/23 11:21 Sodium Chloride 100ml Mini-Bag Plus Administered 01/24/23 11:22 Dose 100 mls @ ud IV .STK-MED ONE Ondansetron HCl 4 mg 01/24/23 09:51 01/24/23 10:33 Ondansetron Hcl 4 Mg/2 Ml Vial IV 01/24/23 09:52 4 mg STAT ONE Administration Ondansetron HCl Confirm 01/24/23 10:17 Ondansetron Hcl 4 Mg/2 Ml Vial Administered 01/24/23 10:18 Dose 4 mg .ROUTE .STK-MED ONE Piperacillin Sod/Tazobactam Sod Confirm 01/24/23 11:21 Piperacillin/Tazobactam Sodium 3.375 Gm Vial Administered 01/24/23 11:22 Dose 3.375 gm IV .STK-MED ONE Lab/Rad Data: Laboratory Result Diagrams 01/24/23 10:10 01/24/23 10:10 Laboratory Results 01/24/23 01/24/23 01/24/23 Range/Units 10:28 10:10 10:10 WBC (4.0-10.5) x10^3/uL RBC (4.1-5.4) x10^6/uL Hgb (12.0-16.0) g/dL Hct (35-47) % MCV (78-100) fL MCH (26-32) pg MCHC (32-36) g/dL RDW (11.5-14.0) % Plt Count (150-450) x10^3/uL MPV (7.5-11.0) fL Gran % (36.0-66.0) % Immature Gran % (Auto) (0.00-0.4) % Nucleat RBC Rel Count (0.00-0.1) % Eos # (Auto) (0-0.5) x10^3/uL Immature Gran # (Auto) (0.00-0.03) x10^3u/L Absolute Lymphs (auto) (1.0-4.6) x10^3/uL Absolute Monos (auto) (0.0-1.3) x10^3/uL Absolute Nucleated RBC (0.00-0.01) x10^3u/L Lymphocytes % (24.0-44.0) % Monocytes % (0.0-12.0) % Eosinophils % (0.00-5.0) % Basophils % (0.0-0.4) % Absolute Granulocytes (1.4-6.9) x10^3/uL Basophils # (0-0.4) x10^3/uL Sodium 132 L (137-145) mmol/L Potassium 3.4 L (3.5-5.1) mmol/L Chloride 93 L (98-107) mmol/L Carbon Dioxide 27 (22-30) mmol/L Anion Gap 15.0 (5-15) MEQ/L BUN 20 H (7-17) mg/dL Creatinine 1.29 H (0.52-1.04) mg/dL Estimated GFR 43.1 ML/MIN Glucose 193 H (74-106) mg/dL Lactic Acid (0.4-2.0) Calcium 9.2 (8.4-10.2) mg/dL Total Bilirubin 1.10 (0.2-1.3) mg/dL AST 25 (14-36) U/L ALT 20 (0-35) U/L Alkaline Phosphatase 86 (38-126) U/L Troponin I 0.015 (0.000-0.034) ng/mL Serum Total Protein 8.2 (6.3-8.2) g/dL Albumin 4.2 (3.5-5.0) g/dL Amylase 236 H (30-110) U/L Lipase 1998 H (23-300) U/L Urine Color Dark Yellow A (Yellow) Urine Appearance Cloudy A (Clear) Urine pH 5.0 (4.6-8.0) Ur Specific Willard 1.015 (1.005-1.030) Urine Protein 100 A (Negative) Urine Glucose (UA) Negative (Negative) mg/dL Urine Ketones Trace A (Negative) Urine Blood Negative (Negative) Urine Nitrite Negative (Negative) Urine Bilirubin Negative (Negative) Urine Urobilinogen 1.0 A (0.2) mg/dL Ur Leukocyte Esterase Trace A (Negative) U Hyaline Cast (Auto) 6-10 A (0-2) /LPF Urine Microscopic RBC 0-2 (0-5) /HPF Urine Microscopic WBC 3-5 (0-5) /HPF Ur Epithelial Cells Few (None Seen) /HPF Urine Bacteria None Seen (None Seen) /HPF Urine Culture Reflexed YES (NO) Slides for Path Review 01/24/23 01/24/23 Range/Units 10:10 09:51 WBC 22.4 H (4.0-10.5) x10^3/uL RBC 4.43 (4.1-5.4) x10^6/uL Hgb 9.4 L (12.0-16.0) g/dL Hct 29.7 L (35-47) % MCV 67.0 L (78-100) fL MCH 21.2 L (26-32) pg MCHC 31.6 L (32-36) g/dL RDW 27.3 H (11.5-14.0) % Plt Count 586 H (150-450) x10^3/uL MPV 8.9 (7.5-11.0) fL Gran % 86.5 H (36.0-66.0) % Immature Gran % (Auto) 0.9 H (0.00-0.4) % Nucleat RBC Rel Count 0.0 (0.00-0.1) % Eos # (Auto) 0.01 (0-0.5) x10^3/uL Immature Gran # (Auto) 0.19 H (0.00-0.03) x10^3u/L Absolute Lymphs (auto) 0.79 L (1.0-4.6) x10^3/uL Absolute Monos (auto) 2.02 H (0.0-1.3) x10^3/uL Absolute Nucleated RBC 0.00 (0.00-0.01) x10^3u/L Lymphocytes % 3.5 L (24.0-44.0) % Monocytes % 9.0 (0.0-12.0) % Eosinophils % 0.0 (0.00-5.0) % Basophils % 0.1 (0.0-0.4) % Absolute Granulocytes 19.31 H (1.4-6.9) x10^3/uL Basophils # 0.03 (0-0.4) x10^3/uL Sodium (137-145) mmol/L Potassium (3.5-5.1) mmol/L Chloride (98-107) mmol/L Carbon Dioxide (22-30) mmol/L Anion Gap (5-15) MEQ/L BUN (7-17) mg/dL Creatinine (0.52-1.04) mg/dL Estimated GFR ML/MIN Glucose (74-106) mg/dL Lactic Acid 1.2 (0.4-2.0) Calcium (8.4-10.2) mg/dL Total Bilirubin (0.2-1.3) mg/dL AST (14-36) U/L ALT (0-35) U/L Alkaline Phosphatase (38-126) U/L Troponin I (0.000-0.034) ng/mL Serum Total Protein (6.3-8.2) g/dL Albumin (3.5-5.0) g/dL Amylase (30-110) U/L Lipase (23-300) U/L Urine Color (Yellow) Urine Appearance (Clear) Urine pH (4.6-8.0) Ur Specific Willard (1.005-1.030) Urine Protein (Negative) Urine Glucose (UA) (Negative) mg/dL Urine Ketones (Negative) Urine Blood (Negative) Urine Nitrite (Negative) Urine Bilirubin (Negative) Urine Urobilinogen (0.2) mg/dL Ur Leukocyte Esterase (Negative) U Hyaline Cast (Auto) (0-2) /LPF Urine Microscopic RBC (0-5) /HPF Urine Microscopic WBC (0-5) /HPF Ur Epithelial Cells (None Seen) /HPF Urine Bacteria (None Seen) /HPF Urine Culture Reflexed (NO) Slides for Path Review YES - Progress Progress: improved, re-examined Progress Note: 01/24/23 11:36 72 years old female with history of atrial fibrillation on Eliquis, hypertension, congestive heart failure, stroke, recent GI bleed is evaluated for upper abdominal discomfort. Patient has tenderness of the lower abdomen but m ore in the upper abdomen. EKG is obtained which showed atrial fibrillation with rate in low 100s and no ST elevation and some PVCs. Negative troponins. She has a white count of 22 with a hemoglobin 9.4 which is improved from her discharge few days ago from [facility] which was 8.0 per POA. She has a amylase into 30s and lipase almost 1999's with some worsening of kidney function with a creatinine of 1.29 with a baseline around 0.5. She is started on gentle hydration as patient has CHF. Blood cultures are obtained, lactate is normal and she is given/started on Zosyn. Obtained CT abdomen pelvis without contrast which showed finding consistent with acute pancreatitis and no obvious colle ction/pseudocyst. No other acute intra-abdominal findings. I believe patient's symptoms are secondary to pancreatitis, discussed with Dr. Caldwell, reviewed history, work-up and current management, agreed with admission. I have reviewed lab work and imaging findings and recommendations of admitting physician with patient and POA who understand and agree with it. Discussed with : Samuel Will see patient in: hospital (observation) Counseled pt/family regarding: lab results, diagnosis, rad results Medical Desision Making - Independent Historian Additional History obtained from: Relative/friend, Informatics Manager - Discussion of managment Care discussed with:: on-call "doc" Reviewed:: Test results Agreed on:: Treatment plan, decision to admit, place in obs Will see patient: in hospital - Diagnostic Testing Diagnostic test were ordered, analyzed, and reviewed by me: Yes Radiological Interpretation: Reviewed by me - Risk of complications The pt has a mod risk of morbidity or mortality based on: Need for prescription drug management The pt has a high risk of morbidity or mortality based on: Decision regarding h ospitilization or escalation of hosp level of care - Departure Departure Disposition: Observation Clinical Impression: Acute pancreatitis, AMANDO (acute kidney injury), Leukocytosis Condition: Fair Critical Care Time: No Referrals: VALERIA JO [Primary Care Provider] - Follow up/PCP as directed
[2023-01-24] MEDS ORDERED: Zofran 4 MG/2 ML VIAL ONE (10:17)
[2023-01-24] MEDS ORDERED: SUBLIMAZE 100 MCG/2 ML ONE (10:17)
[2023-01-24] MEDS: Sodium Chloride 0.9% 1000 ML 1,000 ML IV SCH ×3 (10:31→20:53)
[2023-01-24 10:43] LABS: Absolute Neutrophil Ct (ANC) 19.31 x10^3/uL (1.4-6.9); BASOPHIL % 0.1 % (0.0-0.4); Basophil (Absolute #) 0.03 x10^3/uL (0-0.4); Eosinophil (Absolute #) 0.01 x10^3/uL (0-0.5); Hematocrit 29.7 % (35-47); Hemoglobin 9.4 g/dL (12.0-16.0); IMMATURE GRAN # 0.19 x10^3u/L (0.00-0.03); IMMATURE GRAN % 0.9 % (0.00-0.4); Lymphocyte (Absolute #) 0.79 x10^3/uL (1.0-4.6); Lymphocytes % 3.5 % (24.0-44.0); Mean Corpuscular Hemoglobin 21.2 pg (26-32); Mean Corpuscular Hgb Concent. 31.6 g/dL (32-36); Mean Platelet Volume 8.9 fL (7.5-11.0); Monocyte (Absolute #) 2.02 x10^3/uL (0.0-1.3); Neutrophil % 86.5 % (36.0-66.0); Platelet Count 586 x10^3/uL (150-450); Red Blood Count 4.43 x10^6/uL (4.1-5.4); Red Cell Distribution Width 27.3 % (11.5-14.0); White Blood Count 22.4 x10^3/uL (4.0-10.5)
[2023-01-24 10:45] LABS: Appearance Cloudy (Clear); Bilirubin Negative (Negative); Blood Negative (Negative); Glucose, Urine Negative (Negative); Ketones Trace (Negative); Leukocyte Esterase Trace (Negative); Nitrite Negative (Negative); Protein,Urine Dip 100 (Negative); Specific Gravity 1.015 (1.005-1.030)
[2023-01-24 10:51] LABS: Bacteria None Seen /HPF (None Seen); Epithelial Cells Few /HPF (None Seen); RBC 0-2 /HPF (0-5)
[2023-01-24 10:54] LABS: ADD URINE CULTURE? YES (NO)
[2023-01-24 10:58] LABS: ALBUMIN 4.2 g/dL (3.5-5.0); BILIRUBIN,TOTAL 1.1 mg/dL (0.2-1.3); Calcium 9.2 mg/dL (8.4-10.2); Creatinine 1 1.29 mg/dL (0.52-1.04); EST GLOMERULAR FILTRATION RATE 43.1 ML/MIN; Potassium 3.4 mmol/L (3.5-5.1); Total Protein 8.2 g/dL (6.3-8.2)
[2023-01-24] MEDS ORDERED: PIPERACILLIN/TAZOBACTAM 3.375 GM in Sodium Chloride 100ML MINI-BAG PLUS 100 ML IV ONE (11:13)
--- NOTE | 2023-01-24 11:16 | XRAY ---
Indication: Lower abdomen pain. Multiple contiguous axial images obtained through the abdomen and pelvis without contrast. Comparison: None Lung bases demonstrate moderate subsegmental atelectasis/scarring bilaterally and a few small calcified granulomas. Heart borderline enlarged. Small hiatal hernia. Gastric bypass surgery and cholecystectomy. Noncontrasted stomach and bowel loops appear nonobstructed. Head and uncinate process of the pancreas demonstrates edema with peripancreatic stranding favoring pancreatitis. Small free fluid left upper quadrant and lesser degree left colic gutter with no obvious etiology on this noncontrast exam. No walled off fluid collection or free air. There is 1 cm metallic beam artifact adjacent to the cecum of uncertain etiology. No appendectomy is reported with normal-appearing appendix. Near empty urinary bladder demonstrates Orozco balloon catheter in situ. Remaining liver, pancreas, spleen, adrenal glands, kidneys, ureters, and uterus are unremarkable for noncontrast exam. Mild scattered aortoiliac calcifications without AAA. Osseous structures intact with osteopenia, moderate degenerative changes throughout the visualized spine, and moderate levorotoscoliosis centered at L1-L2. Impression: 1. Pancreatic head and uncinate edema with peripancreatic stranding favoring acute pancreatitis. Small free fluid but no walled off fluid collection or free air. 2. Small metallic density adjacent to cecum of uncertain etiology. Patient denies appendectomy. 3. Chronic findings including bibasilar atelectasis/scarring, small hiatal hernia, arteriosclerotic disease, chronic bony findings, and old granulomatous disease.
[2023-01-24] MEDS ORDERED: Sodium Chloride 100ML MINI-BAG PLUS 100 ML IV ONE (11:21)
[2023-01-24] MEDS ORDERED: PIPERACILLIN/TAZOBACTAM IV ONE (11:21)
[2023-01-24 12:01] LABS: Slide Review 1 YES
[2023-01-24] MEDS ORDERED: Sodium Chloride 0.9% 500 ML 500 ML IV ONE (12:27)
[2023-01-24] MEDS ORDERED: DUONEB 0.5-3 MG/3 ml Neb IH PRN (13:06)
[2023-01-24] MEDS ORDERED: PIPERACILLIN/TAZOBACTAM 3.375 GM in Sodium Chloride 100ML MINI-BAG PLUS 100 ML IV SCH (13:06)
[2023-01-24] MEDS: PROTONIX 40 MG IV IV SCH (13:46)
[2023-01-24] MEDS: Zofran 4 MG/2 ML VIAL IV PRN (13:52)
[2023-01-24] MEDS: MORPHINE SULFATE 2 MG INJ IV PRN ×3 (13:52→22:20)
[2023-01-24] MEDS: Piperacillin/Tazobactam 2.25 GM 2.25 GM in Sodium Chloride 100ML MINI-BAG PLUS 100 ML IV SCH ×2 (17:26→23:46)
[2023-01-24] MEDS: Toprol-Xl 25MG Tablets PO SCH (17:26)
[2023-01-24] MEDS: Prozac 20 MG PO SCH (17:27)
[2023-01-25] MEDS: Piperacillin/Tazobactam 2.25 GM 2.25 GM in Sodium Chloride 100ML MINI-BAG PLUS 100 ML IV SCH ×4 (05:34→23:30)
[2023-01-25 07:03] LABS: Absolute Neutrophil Ct (ANC) 11.79 x10^3/uL (1.4-6.9); BASOPHIL % 0.1 % (0.0-0.4); Basophil (Absolute #) 0.02 x10^3/uL (0-0.4); Eosinophil % 0.1 % (0.00-5.0); Eosinophil (Absolute #) 0.01 x10^3/uL (0-0.5); Hematocrit 27.4 % (35-47); Hemoglobin 8.5 g/dL (12.0-16.0); IMMATURE GRAN # 0.05 x10^3u/L (0.00-0.03); IMMATURE GRAN % 0.4 % (0.00-0.4); Lymphocyte (Absolute #) 0.77 x10^3/uL (1.0-4.6); Lymphocytes % 5.6 % (24.0-44.0); Mean Cell Volume 68.8 fL (78-100); Mean Corpuscular Hemoglobin 21.4 pg (26-32); Mean Platelet Volume 8.8 fL (7.5-11.0); Monocyte (Absolute #) 1.06 x10^3/uL (0.0-1.3); Monocytes % 7.7 % (0.0-12.0); Neutrophil % 86.1 % (36.0-66.0); Platelet Count 500 x10^3/uL (150-450); Red Blood Count 3.98 x10^6/uL (4.1-5.4); Red Cell Distribution Width 27.3 % (11.5-14.0); White Blood Count 13.7 x10^3/uL (4.0-10.5)
[2023-01-25 07:19] LABS: ALBUMIN 3.5 g/dL (3.5-5.0); ALKALINE PHOSPHATASE 346 U/L (38-126); AMYLASE 104 U/L (30-110); ANION GAP 14.4 MEQ/L (5-15); BLOOD UREA NITROGEN 15 mg/dL (7-17); CHLORIDE 102 mmol/L (98-107); Calcium 8.9 mg/dL (8.4-10.2); Carbon Dioxide 26 mmol/L (22-30); EST GLOMERULAR FILTRATION RATE > 60.0 ML/MIN; Glucose 167 mg/dL (74-106); LIPASE 498 U/L (23-300); SGOT/AST 423 U/L (14-36); SGPT/ALT 208 U/L (0-35); SODIUM 138 mmol/L (137-145); Total Protein 6.9 g/dL (6.3-8.2)
[2023-01-25] MEDS: Sodium Chloride 0.9% 1000 ML 1,000 ML IV SCH ×3 (07:58→23:33)
[2023-01-25] MEDS: MORPHINE SULFATE 2 MG INJ IV PRN ×3 (08:01→22:21)
[2023-01-25] MEDS: Zofran 4 MG/2 ML VIAL IV PRN ×2 (08:01→15:58)
[2023-01-25] MEDS: PROTONIX 40 MG IV IV SCH (09:10)
[2023-01-25] MEDS: Prozac 20 MG PO SCH ×2 (09:15→10:20)
[2023-01-25] MEDS: Toprol-Xl 25MG Tablets PO SCH ×2 (09:15→10:20)
[2023-01-25] MEDS ORDERED: NON-FORMULARY ITEM (Fluoxetine Hcl [Fluoxetine Hcl] 40 MG Capsule) PO SCH (10:00)
[2023-01-25 11:08] LABS: Slide Review 1 YES
--- NOTE | 2023-01-25 14:18 | PCM.HP ---
History of Present Illness - Chief Complaint Chief Complaint: ACute pancreatitis History of Present Illness: is a 72 year old female patient of Dr Carpenter with history of atrial fibrillation on Eliquis/metoprolol, congestive heart failure, hypertension, hyperlipidemia, previous stroke with right-sided weakness and dementia, recent admission at another facility needing transfusion for possible GI bleed presented in the ER with abdominal pain more in the upper abdomen dull aching to cramping constant without any significant aggravating or relieving factors with associated nausea but no vomiting. Patient feels weak fatigued tired all the time. Patient was discharged from hospital few days ago, was evaluated by Dr Brown for Dr Carpenter and he advised ER eval due to not feeling any improvement . ER evaluation revealed acute pancreatitis. Patient is S/P bariatric surgery and Hx Cholecystectomy. Patient is admitted to [facility] for bowel rest and IV fluids. Medications & Allergies Home Medications: Home Medication List Apixaban [Eliquis] 5 mg PO BID 01/14/23 [History Confirmed 01/24/23] Atorvastatin Calcium 10 mg PO DAILY 01/14/23 [History Confirmed 01/24/23] Docusate Sodium 100 mg [Docusate Sodium 100 MG] 100 mg PO DAILY PRN 01/14/23 [History Confirmed 01/24/23] Fluoxetine HCl 40 mg pe PO DAILY 01/14/23 [History Confirmed 01/24/23] Furosemide 20 mg [Lasix 20 mg] 20 mg PO DAILY 01/14/23 [History Confirmed 01/24/23] Melatonin 5 mg PO HS 01/14/23 [History Confirmed 01/24/23] Ondansetron ODT 4 MG [Zofran Odt 4 mg] 4 mg PO UD PRN 01/14/23 [History Confirmed 01/24/23] PANTOPRAZOLE 40 mg Tablet [Protonix 40MG Tablet] 40 mg PO DAILY 01/14/23 [History Confirmed 01/24/23] Metoprolol Succinate 25 mg Xl* [Toprol-Xl 25MG Tablets] 25 mg PO DAILY #30 tab 01/16/23 [Rx Confirmed 01/24/23] Potassium Chloride 20 meq PO DAILY #30 tablet 01/16/23 [Rx Confirmed 01/24/23] Famotidine [Pepcid] 40 mg PO DAILY 01/24/23 [History Confirmed 01/24/23] Allergies/Adverse Reactions: Allergies Allergy/AdvReac Type Severity Reaction Status Date / Time No Known Drug Allergies Allergy Verified 01/24/23 10:56 - Past Medical History Past Medical History: Yes Neurological History: Stroke ENT History: Macular Degeneration Cardiac History: Arrhythmia, Hypertension Respiratory History: No Pertinent History Endocrine Medical History: No Pertinent History GI Medical History: GERD, GI Bleed History: No Pertinent History Pyscho-Social History: Depression Reproductive Disorders: No Pertinent History Comment: anemia, right hemiplegia, afib, aphasia, dysphagia, congenital hammer toe right foot, diabetes prior to lap band. Was in hospital last week (Friday through ) in [place] for upper GI bleed - Female History Are you now?: No - Past Surgical History Past Surgical History: Yes Neuro Surgical History: No Pertinent History Cardiac History: No Pertinent History Respiratory Surgery: No Pertinent History GI Surgical History: Other Genitourinary Surgical Hx: No Pertinent History Musculskeletal Surgical Hx: No Pertinent History Female Surgical History: No Pertinent History Other Surgical History: Lap band procedure at least 10 -12 years ago, CAUTERIZED ULCER - Social History Smoking Status: Never smoker Exposure to second hand smoke: No Alcohol: None Drug Use: none - Physical Exam Vital Signs: Vital Signs - 24 hr Temp Pulse Resp BP Pulse Ox 01/25/23 12:00 16 01/25/23 11:49 97.9 F 101 H 16 141/69 92 L 01/25/23 07:50 97.9 F 113 H 16 136/80 95 01/25/23 07:28 16 01/25/23 04:00 23 01/25/23 03:00 98.9 F 118 H 23 113/58 94 L 01/24/23 23:50 16 01/24/23 22:12 98.5 F 103 H 18 173/108 94 L 01/24/23 19:57 99.3 F 01/24/23 19:56 100.0 F 103 H 16 128/62 91 L 01/24/23 17:41 108 H 01/24/23 16:00 98.2 F 136 H 29 H 130/81 96 01/24/23 15:37 18 Results - Labs Lab/Micro Results: Lab Results-Last 24 Hours 01/24/23 01/24/23 01/25/23 Range/Units 15:15 18:30 07:07 WBC 13.7 H (4.0-10.5) x10^3/uL RBC 3.98 L (4.1-5.4) x10^6/uL Hgb 8.5 L (12.0-16.0) g/dL Hct 27.4 L (35-47) % MCV 68.8 L (78-100) fL MCH 21.4 L (26-32) pg MCHC 31.0 L (32-36) g/dL RDW 27.3 H (11.5-14.0) % Plt Count 500 H (150-450) x10^3/uL MPV 8.8 (7.5-11.0) fL Gran % 86.1 H (36.0-66.0) % Immature Gran % (Auto) 0.4 (0.00-0.4) % Nucleat RBC Rel Count 0.0 (0.00-0.1) % Eos # (Auto) 0.01 (0-0.5) x10^3/uL Immature Gran # (Auto) 0.05 H (0.00-0.03) x10^3u/L Absolute Lymphs (auto) 0.77 L (1.0-4.6) x10^3/uL Absolute Monos (auto) 1.06 (0.0-1.3) x10^3/uL Absolute Nucleated RBC 0.00 (0.00-0.01) x10^3u/L Lymphocytes % 5.6 L (24.0-44.0) % Monocytes % 7.7 (0.0-12.0) % Eosinophils % 0.1 (0.00-5.0) % Basophils % 0.1 (0.0-0.4) % Absolute Granulocytes 11.79 H (1.4-6.9) x10^3/uL Basophils # 0.02 (0-0.4) x10^3/uL Sodium (137-145) mmol/L Potassium (3.5-5.1) mmol/L Chloride (98-107) mmol/L Carbon Dioxide (22-30) mmol/L Anion Gap (5-15) MEQ/L BUN (7-17) mg/dL Creatinine (0.52-1.04) mg/dL Estimated GFR ML/MIN Glucose (74-106) mg/dL Calcium (8.4-10.2) mg/dL Total Bilirubin (0.2-1.3) mg/dL AST (14-36) U/L ALT (0-35) U/L Alkaline Phosphatase (38-126) U/L Troponin I < 0.012 < 0.012 (0.000-0.034) ng/mL Serum Total Protein (6.3-8.2) g/dL Albumin (3.5-5.0) g/dL Amylase (30-110) U/L Lipase (23-300) U/L Slides for Path Review YES 01/25/23 Range/Units 07:21 WBC (4.0-10.5) x10^3/uL RBC (4.1-5.4) x10^6/uL Hgb (12.0-16.0) g/dL Hct (35-47) % MCV (78-100) fL MCH (26-32) pg MCHC (32-36) g/dL RDW (11.5-14.0) % Plt Count (150-450) x10^3/uL MPV (7.5-11.0) fL Gran % (36.0-66.0) % Immature Gran % (Auto) (0.00-0.4) % Nucleat RBC Rel Count (0.00-0.1) % Eos # (Auto) (0-0.5) x10^3/uL Immature Gran # (Auto) (0.00-0.03) x10^3u/L Absolute Lymphs (auto) (1.0-4.6) x10^3/uL Absolute Monos (auto) (0.0-1.3) x10^3/uL Absolute Nucleated RBC (0.00-0.01) x10^3u/L Lymphocytes % (24.0-44.0) % Monocytes % (0.0-12.0) % Eosinophils % (0.00-5.0) % Basophils % (0.0-0.4) % Absolute Granulocytes (1.4-6.9) x10^3/uL Basophils # (0-0.4) x10^3/uL Sodium 138 (137-145) mmol/L Potassium 4.0 (3.5-5.1) mmol/L Chloride 102 (98-107) mmol/L Carbon Dioxide 26 (22-30) mmol/L Anion Gap 14.4 (5-15) MEQ/L BUN 15 (7-17) mg/dL Creatinine 0.70 (0.52-1.04) mg/dL Estimated GFR > 60.0 ML/MIN Glucose 167 H (74-106) mg/dL Calcium 8.9 (8.4-10.2) mg/dL Total Bilirubin 2.70 H (0.2-1.3) mg/dL AST 423 H (14-36) U/L ALT 208 H (0-35) U/L Alkaline Phosphatase 346 H (38-126) U/L Troponin I (0.000-0.034) ng/mL Serum Total Protein 6.9 (6.3-8.2) g/dL Albumin 3.5 (3.5-5.0) g/dL Amylase 104 (30-110) U/L Lipase 498 H (23-300) U/L Slides for Path Review Microbiology 01/24/23 10:28 Urine Culture - Preliminary Clean Catch Midstream NO GROWTH TO DATE - Radiology Impressions Radiology Exams & Impressions: Radiology Procedures Category Date Time Status ABDOMEN AND PELVIS W/0 CONTRAS [CT] Stat Exams 01/24/23 09:52 Completed ABDOMINAL-LIMITED [US] Routine Exams 01/27/23 08:00 Ordered - Other Procedures and Tests Respiratory Therapy 01/24/23 13:54 Respiratory Therapy Assessment ONCE
[2023-01-26] MEDS: MORPHINE SULFATE 2 MG INJ IV PRN ×3 (02:28→15:43)
[2023-01-26 05:47] LABS: Absolute Neutrophil Ct (ANC) 7.82 x10^3/uL (1.4-6.9); BASOPHIL % 0.2 % (0.0-0.4); Basophil (Absolute #) 0.02 x10^3/uL (0-0.4); Eosinophil % 0.4 % (0.00-5.0); Eosinophil (Absolute #) 0.04 x10^3/uL (0-0.5); Hematocrit 24.2 % (35-47); Hemoglobin 7.2 g/dL (12.0-16.0); IMMATURE GRAN # 0.03 x10^3u/L (0.00-0.03); IMMATURE GRAN % 0.3 % (0.00-0.4); Lymphocyte (Absolute #) 0.92 x10^3/uL (1.0-4.6); Lymphocytes % 9.4 % (24.0-44.0); Mean Cell Volume 70.6 fL (78-100); Mean Corpuscular Hgb Concent. 29.8 g/dL (32-36); Mean Platelet Volume 8.7 fL (7.5-11.0); Monocyte (Absolute #) 0.92 x10^3/uL (0.0-1.3); Monocytes % 9.4 % (0.0-12.0); Neutrophil % 80.3 % (36.0-66.0); Platelet Count 435 x10^3/uL (150-450); Red Blood Count 3.43 x10^6/uL (4.1-5.4); Red Cell Distribution Width 26.4 % (11.5-14.0); White Blood Count 9.8 x10^3/uL (4.0-10.5)
[2023-01-26] MEDS: Piperacillin/Tazobactam 2.25 GM 2.25 GM in Sodium Chloride 100ML MINI-BAG PLUS 100 ML IV SCH ×4 (06:31→23:42)
[2023-01-26 07:01] LABS: ALKALINE PHOSPHATASE 308 U/L (38-126); AMYLASE 56 U/L (30-110); ANION GAP 9.5 MEQ/L (5-15); BLOOD UREA NITROGEN 13 mg/dL (7-17); CHLORIDE 103 mmol/L (98-107); Calcium 8.1 mg/dL (8.4-10.2); Carbon Dioxide 24 mmol/L (22-30); Creatinine 1 0.59 mg/dL (0.52-1.04); EST GLOMERULAR FILTRATION RATE > 60.0 ML/MIN; Glucose 113 mg/dL (74-106); LIPASE 149 U/L (23-300); SGOT/AST 121 U/L (14-36); SGPT/ALT 145 U/L (0-35); SODIUM 134 mmol/L (137-145); TSH, 3RD Generation 0.073 mIU/L (0.47-4.68); Total Protein 6.1 g/dL (6.3-8.2); Vitamin B12 895 pg/mL (239-931)
[2023-01-26 07:04] LABS: Potassium 2.9 mmol/L (3.5-5.1)
[2023-01-26] MEDS: POTASSIUM CHLORIDE 20 mEq IN WATER 100ML 100 ML IV SCH ×2 (07:15→09:12)
[2023-01-26] MEDS: Klor Con PO SCH ×4 (07:15→14:15)
[2023-01-26 08:31] LABS: Slide Review 1 YES
[2023-01-26] MEDS: PROTONIX 40 MG IV IV SCH (08:47)
[2023-01-26] MEDS: Prozac 20 MG PO SCH (08:47)
[2023-01-26] MEDS: Toprol-Xl 25MG Tablets PO SCH (08:47)
[2023-01-26 12:14] LABS: ABO TYPING A; Antibody Screen NEGATIVE (NEGATIVE); RH TYPING POSITIVE
[2023-01-26 12:15] LABS: CROSS MATCH (PRBC) COMPATIBLE (COMPATIBLE)
[2023-01-26] MEDS: Sodium Chloride 0.9% 1000 ML 1,000 ML IV SCH ×2 (13:47→15:43)
[2023-01-26 15:34] LABS: Hematocrit 27.4 % (35-47); Hemoglobin 8.4 g/dL (12.0-16.0)
--- NOTE | 2023-01-26 15:56 | PCM.NOTE ---
Date and Time: 01/26/23 1552 Subjective Assessment: Patient received a unit of blood for Hgb = 7.2 and tolerated it well seems stronger and more alert today. OBJECTIVE DATA Vital Signs: Vital Signs - 24 hr Temp Pulse Resp BP Pulse Ox 01/26/23 11:56 97.5 F 82 16 127/73 94 L 01/26/23 11:41 17 01/26/23 07:34 17 01/26/23 06:35 97.9 F 110 H 17 141/68 93 L 01/26/23 04:00 98.9 F 97 H 17 137/71 93 L 01/25/23 23:45 99.7 F 101 H 16 140/73 92 L 01/25/23 23:15 17 01/25/23 20:00 99.0 F 97 H 17 129/73 95 01/25/23 16:00 98.0 F 71 16 137/79 97 Pain Assessment - Last Documented Pain Intensity 10 Pain Scale Used 0-10 Pain Scale Intake and Output: Intake & Output 01/24/23 01/25/23 01/26/23 01/27/23 11:59 11:59 11:59 11:59 Intake Total 485 5226 240 Output Total 650 1500 300 Balance -165 3726 -60 Weight 79.379 kg 77.1 kg 77.2 kg Lab Results: Lab Results-Last 24 Hours 01/26/23 01/26/23 01/26/23 Range/Units 05:49 05:49 07:05 WBC 9.8 (4.0-10.5) x10^3/uL RBC 3.43 L (4.1-5.4) x10^6/uL Hgb 7.2 L (12.0-16.0) g/dL Hct 24.2 L (35-47) % MCV 70.6 L (78-100) fL MCH 21.0 L (26-32) pg MCHC 29.8 L (32-36) g/dL RDW 26.4 H (11.5-14.0) % Plt Count 435 (150-450) x10^3/uL MPV 8.7 (7.5-11.0) fL Gran % 80.3 H (36.0-66.0) % Immature Gran % (Auto) 0.3 (0.00-0.4) % Nucleat RBC Rel Count 0.0 (0.00-0.1) % Eos # (Auto) 0.04 (0-0.5) x10^3/uL Immature Gran # (Auto) 0.03 (0.00-0.03) x10^3u/L Absolute Lymphs (auto) 0.92 L (1.0-4.6) x10^3/uL Absolute Monos (auto) 0.92 (0.0-1.3) x10^3/uL Absolute Nucleated RBC 0.00 (0.00-0.01) x10^3u/L Lymphocytes % 9.4 L (24.0-44.0) % Monocytes % 9.4 (0.0-12.0) % Eosinophils % 0.4 (0.00-5.0) % Basophils % 0.2 (0.0-0.4) % Absolute Granulocytes 7.82 H (1.4-6.9) x10^3/uL Basophils # 0.02 (0-0.4) x10^3/uL Sodium 134 L (137-145) mmol/L Potassium 2.9 L* D (3.5-5.1) mmol/L Chloride 103 (98-107) mmol/L Carbon Dioxide 24 (22-30) mmol/L Anion Gap 9.5 (5-15) MEQ/L BUN 13 (7-17) mg/dL Creatinine 0.59 (0.52-1.04) mg/dL Estimated GFR > 60.0 ML/MIN Glucose 113 H (74-106) mg/dL Calcium 8.1 L (8.4-10.2) mg/dL Magnesium 2.1 (1.6-2.3) mg/dL Total Bilirubin 1.50 H (0.2-1.3) mg/dL AST 121 H (14-36) U/L ALT 145 H (0-35) U/L Alkaline Phosphatase 308 H (38-126) U/L Serum Total Protein 6.1 L (6.3-8.2) g/dL Albumin 3.0 L (3.5-5.0) g/dL Amylase 56 (30-110) U/L Lipase 149 (23-300) U/L Vitamin B12 895 (239-931) pg/mL TSH 3rd Generation 0.073 L (0.47-4.68) mIU/L Slides for Path Review YES ABO Group Rh Factor Antibody Screen (NEGATIVE) Crossmatch (COMPATIBLE) 01/26/23 01/26/23 01/26/23 Range/Units 10:55 10:55 15:30 WBC (4.0-10.5) x10^3/uL RBC (4.1-5.4) x10^6/uL Hgb 8.4 L (12.0-16.0) g/dL Hct 27.4 L (35-47) % MCV (78-100) fL MCH (26-32) pg MCHC (32-36) g/dL RDW (11.5-14.0) % Plt Count (150-450) x10^3/uL MPV (7.5-11.0) fL Gran % (36.0-66.0) % Immature Gran % (Auto) (0.00-0.4) % Nucleat RBC Rel Count (0.00-0.1) % Eos # (Auto) (0-0.5) x10^3/uL Immature Gran # (Auto) (0.00-0.03) x10^3u/L Absolute Lymphs (auto) (1.0-4.6) x10^3/uL Absolute Monos (auto) (0.0-1.3) x10^3/uL Absolute Nucleated RBC (0.00-0.01) x10^3u/L Lymphocytes % (24.0-44.0) % Monocytes % (0.0-12.0) % Eosinophils % (0.00-5.0) % Basophils % (0.0-0.4) % Absolute Granulocytes (1.4-6.9) x10^3/uL Basophils # (0-0.4) x10^3/uL Sodium (137-145) mmol/L Potassium 4.1 D (3.5-5.1) mmol/L Chloride (98-107) mmol/L Carbon Dioxide (22-30) mmol/L Anion Gap (5-15) MEQ/L BUN (7-17) mg/dL Creatinine (0.52-1.04) mg/dL Estimated GFR ML/MIN Glucose (74-106) mg/dL Calcium (8.4-10.2) mg/dL Magnesium (1.6-2.3) mg/dL Total Bilirubin (0.2-1.3) mg/dL AST (14-36) U/L ALT (0-35) U/L Alkaline Phosphatase (38-126) U/L Serum Total Protein (6.3-8.2) g/dL Albumin (3.5-5.0) g/dL Amylase (30-110) U/L Lipase (23-300) U/L Vitamin B12 (239-931) pg/mL TSH 3rd Generation (0.47-4.68) mIU/L Slides for Path Review ABO Group A Rh Factor POSITIVE Antibody Screen NEGATIVE (NEGATIVE) Crossmatch COMPATIBLE (COMPATIBLE) Radiology Exams: Radiology Procedures Category Date Time Status ABDOMINAL-LIMITED [US] Routine Exams 01/27/23 08:00 Ordered
[2023-01-27] MEDS: Sodium Chloride 0.9% 1000 ML 1,000 ML IV SCH ×2 (02:04→21:25)
[2023-01-27 04:44] LABS: Absolute Neutrophil Ct (ANC) 6.81 x10^3/uL (1.4-6.9); BASOPHIL % 0.4 % (0.0-0.4); Basophil (Absolute #) 0.04 x10^3/uL (0-0.4); Eosinophil % 1.4 % (0.00-5.0); Eosinophil (Absolute #) 0.13 x10^3/uL (0-0.5); Hematocrit 27.8 % (35-47); Hemoglobin 8.5 g/dL (12.0-16.0); IMMATURE GRAN # 0.05 x10^3u/L (0.00-0.03); IMMATURE GRAN % 0.5 % (0.00-0.4); Lymphocyte (Absolute #) 1.36 x10^3/uL (1.0-4.6); Lymphocytes % 14.6 % (24.0-44.0); Mean Cell Volume 70.6 fL (78-100); Mean Corpuscular Hemoglobin 21.6 pg (26-32); Mean Corpuscular Hgb Concent. 30.6 g/dL (32-36); Mean Platelet Volume 8.9 fL (7.5-11.0); Monocyte (Absolute #) 0.91 x10^3/uL (0.0-1.3); Monocytes % 9.8 % (0.0-12.0); Neutrophil % 73.3 % (36.0-66.0); Platelet Count 445 x10^3/uL (150-450); Red Blood Count 3.94 x10^6/uL (4.1-5.4); Red Cell Distribution Width 26.3 % (11.5-14.0); White Blood Count 9.3 x10^3/uL (4.0-10.5)
[2023-01-27 05:01] LABS: ALKALINE PHOSPHATASE 269 U/L (38-126); ANION GAP 11.9 MEQ/L (5-15); BLOOD UREA NITROGEN 6 mg/dL (7-17); CHLORIDE 103 mmol/L (98-107); Calcium 8.2 mg/dL (8.4-10.2); Carbon Dioxide 23 mmol/L (22-30); Creatinine 1 0.55 mg/dL (0.52-1.04); EST GLOMERULAR FILTRATION RATE > 60.0 ML/MIN; Glucose 117 mg/dL (74-106); Potassium 3.8 mmol/L (3.5-5.1); SGOT/AST 45 U/L (14-36); SGPT/ALT 90 U/L (0-35); SODIUM 134 mmol/L (137-145); Total Protein 6.4 g/dL (6.3-8.2)
[2023-01-27] MEDS: Piperacillin/Tazobactam 2.25 GM 2.25 GM in Sodium Chloride 100ML MINI-BAG PLUS 100 ML IV SCH ×4 (05:30→23:30)
[2023-01-27 07:22] LABS: Slide Review 1 YES
[2023-01-27] MEDS: PROTONIX 40 MG IV IV SCH (09:35)
[2023-01-27] MEDS: Prozac 20 MG PO SCH (10:48)
[2023-01-27] MEDS: Toprol Xl 50 MG PO SCH (10:51)
--- NOTE | 2023-01-27 11:03 | XRAY ---
Indication: Abdominal pain. Cholecystectomy. Two-dimensional right upper quadrant abdominal sonogram performed. Comparison: None Pancreas obscured due to overlying bowel gas. Gallbladder surgically absent. No free fluid. Common bile duct measures 4.6 mm. Visualized liver homogeneous in echogenicity. No hepatomegaly. Visualized right kidney measures 10.2 cm in length and sonographically unremarkable. Impression: Nonvisualization pancreas. Cholecystectomy. Remaining right upper quadrant sonogram is negative.
[2023-01-27] MEDS ORDERED: Lopressor 25MG Tab PO ONE (16:01)
--- NOTE | 2023-01-27 17:12 | PCM.NOTE ---
Date and Time: 01/27/231656 Subjective Assessment: Pt was up trying to get out of bed all night, wanted her nephew to come get her. This morning is doing well. She remembers having a rough night. Tells me congratulations, the staff told her I was expecting! (This is definitely not the case). Oriented to person and place but not time (even year). Says she is "sick" meaning nauseated. - Review of Systems Constitutional: No Fever Abdominal/Gastrointestinal: Nausea Objective Exam General Appearance: no apparent distress, alert Neurologic Exam: cooperative, disoriented Skin Exam: normal color, warm, dry, No rash Eye Exam: eyes nml inspection Ears, Nose, Throat Exam: moist mucous membranes Neck Exam: normal inspection Respiratory Exam: normal breath sounds, lungs clear, No crackles/rales, No rhonchi, No wheezing Cardiovascular Exam: regular rate/rhythm, normal heart sounds, No murmur Gastrointestinal/Abdomen Exam: soft, normal bowel sounds, No tenderness, No distention, No mass, No guarding, No rebound Extremity Exam: normal inspection, No pedal edema, No swelling Back Exam: normal inspection, No rash OBJECTIVE DATA Vital Signs: Vital Signs - 24 hr Temp Pulse Resp BP BP Pulse Ox 01/27/23 16:00 16 01/27/23 15:33 96.7 F 88 16 181/106 94 L 01/27/23 15:30 178/110 01/27/23 12:00 16 01/27/23 11:17 96.8 F 100 H 16 174/92 93 L 01/27/23 08:00 16 01/27/23 06:42 96.4 F 87 16 172/90 91 L 01/27/23 04:01 16 01/27/23 03:26 98.2 F 92 H 16 179/97 92 L 01/27/23 00:00 19 01/26/23 23:53 98.5 F 109 H 19 131/87 93 L 01/26/23 20:00 16 01/26/23 19:48 97.8 F 98 H 16 159/78 95 Pain Assessment - Last Documented Pain Intensity 0 Pain Scale Used 0-10 Pain Scale Intake and Output: Intake & Output 01/25/23 01/26/23 01/27/23 01/28/23 11:59 11:59 11:59 11:59 Intake Total 485 5226 3529 240 Output Total 995 5671 2100 Balance -165 2577 9301 240 Weight 77.1 kg 77.2 kg 77.2 kg Lab Results: Lab Results-Last 24 Hours 01/27/23 01/27/23 01/27/23 Range/Units 04:27 04:27 05:10 WBC 9.3 (4.0-10.5) x10^3/uL RBC 3.94 L (4.1-5.4) x10^6/uL Hgb 8.5 L (12.0-16.0) g/dL Hct 27.8 L (35-47) % MCV 70.6 L (78-100) fL MCH 21.6 L (26-32) pg MCHC 30.6 L (32-36) g/dL RDW 26.3 H (11.5-14.0) % Plt Count 445 (150-450) x10^3/uL MPV 8.9 (7.5-11.0) fL Gran % 73.3 H (36.0-66.0) % Immature Gran % (Auto) 0.5 H (0.00-0.4) % Nucleat RBC Rel Count 0.0 (0.00-0.1) % Eos # (Auto) 0.13 (0-0.5) x10^3/uL Immature Gran # (Auto) 0.05 H (0.00-0.03) x10^3u/L Absolute Lymphs (auto) 1.36 (1.0-4.6) x10^3/uL Absolute Monos (auto) 0.91 (0.0-1.3) x10^3/uL Absolute Nucleated RBC 0.00 (0.00-0.01) x10^3u/L Lymphocytes % 14.6 L (24.0-44.0) % Monocytes % 9.8 (0.0-12.0) % Eosinophils % 1.4 (0.00-5.0) % Basophils % 0.4 (0.0-0.4) % Absolute Granulocytes 6.81 (1.4-6.9) x10^3/uL Basophils # 0.04 (0-0.4) x10^3/uL Sodium 134 L (137-145) mmol/L Potassium 3.8 (3.5-5.1) mmol/L Chloride 103 (98-107) mmol/L Carbon Dioxide 23 (22-30) mmol/L Anion Gap 11.9 (5-15) MEQ/L BUN 6 L (7-17) mg/dL Creatinine 0.55 (0.52-1.04) mg/dL Estimated GFR > 60.0 ML/MIN Glucose 117 H (74-106) mg/dL Calcium 8.2 L (8.4-10.2) mg/dL Total Bilirubin 1.10 (0.2-1.3) mg/dL AST 45 H (14-36) U/L ALT 90 H (0-35) U/L Alkaline Phosphatase 269 H (38-126) U/L Serum Total Protein 6.4 (6.3-8.2) g/dL Albumin 3.0 L (3.5-5.0) g/dL Free T4 1.70 (0.78-2.19) ng/dL Slides for Path Review YES Radiology Exams: Radiology Procedures Category Date Time Status ABDOMINAL-LIMITED [US] Routine Exams 01/27/23 08:00 Completed Multi-Disciplinary Progress Notes: Multi-Disciplinary Progress Notes 01/27/23 11:07 Case Management Note by Carleen Garcia NO CHANGE IN DC PLANS AT THIS TIME- FAMILY PLANS FOR PATIENT TO RETURN HOME TO THEIR CARE. PATIENT HAS 24 HR CARE AT HOME Initialized on 01/27/23 11:07 - END OF NOTE Assessment/Plan (1) Acute pancreatitis Current Visit: Yes Status: Resolved Qualifiers: Pancreatitis type: idiopathic Acute pancreatitis complication: unspecified Qualified Code(s): K85.00 - Idiopathic acute pancreatitis without necrosis or infection Assessment & Plan: I expect she will be able to discharge to home tomorrow. Code(s): K85.90 - ACUTE PANCREATITIS WITHOUT NECROSIS OR INFECTION, UNSP (2) AMANDO (acute kidney injury) Current Visit: Yes Status: Resolved Code(s): N17.9 - ACUTE KIDNEY FAILURE, UNSPECIFIED (3) Leukocytosis Current Visit: Yes Status: Resolved Qualifiers: Leukocytosis type: unspecified Qualified Code(s): D72.829 - Elevated white blood cell count, unspecified Code(s): D72.829 - ELEVATED WHITE BLOOD CELL COUNT, UNSPECIFIED (4) Hx of completed stroke Current Visit: No Status: Chronic Code(s): Z86.73 - PRSNL HX OF TIA (TIA), AND CEREB INFRC W/O RESID DEFICITS (5) Anemia Current Visit: No Status: Chronic Qualifiers: Anemia type: iron deficiency Iron deficiency anemia type: chronic blood loss Qualified Code(s): D50.0 - Iron deficiency anemia secondary to blood loss (chronic) Assessment & Plan: required blood transfusion during this stay Code(s): D64.9 - ANEMIA, UNSPECIFIED (6) Atrial fibrillation Current Visit: No Status: Chronic Qualifiers: Atrial fibrillation type: longstanding persistent Qualified Code(s): I48.11 - Longstanding persistent atrial fibrillation Assessment & Plan: increased toprol as HR 90s-100s (now 50mg ER daily) Code(s): I48.91 - UNSPECIFIED ATRIAL FIBRILLATION (7) Vascular dementia Current Visit: No Status: Suspected Qualifiers: Dementia severity: moderate Dementia behavioral or psychological symptom: with anxiety Qualified Code(s): F01.B4 - Vascular dementia, moderate, with anxiety Code(s): F01.50 - VASCULAR DEMENTIA, UNSP SEVERITY, WITHOUT BEH/PSYCH/MOOD/ANX (8) Elevated liver enzymes Current Visit: Yes Status: Acute Assessment & Plan: increased after admission, but have decreased during her stay. Code(s): R74.8 - ABNORMAL LEVELS OF OTHER SERUM ENZYMES
[2023-01-27] MEDS: MORPHINE SULFATE 2 MG INJ IV PRN (23:30)
[2023-01-28] MEDS: Piperacillin/Tazobactam 2.25 GM 2.25 GM in Sodium Chloride 100ML MINI-BAG PLUS 100 ML IV SCH ×4 (05:20→23:47)
[2023-01-28 07:09] LABS: Hematocrit 28.4 % (35-47); Hemoglobin 8.9 g/dL (12.0-16.0); Mean Cell Volume 70.6 fL (78-100); Mean Corpuscular Hemoglobin 22.1 pg (26-32); Mean Corpuscular Hgb Concent. 31.3 g/dL (32-36); Mean Platelet Volume 8.7 fL (7.5-11.0); Platelet Count 458 x10^3/uL (150-450); Red Blood Count 4.02 x10^6/uL (4.1-5.4); Red Cell Distribution Width 26.6 % (11.5-14.0); White Blood Count 8.3 x10^3/uL (4.0-10.5)
[2023-01-28 07:11] LABS: ALBUMIN 3.1 g/dL (3.5-5.0); ALKALINE PHOSPHATASE 217 U/L (38-126); ANION GAP 12.8 MEQ/L (5-15); BLOOD UREA NITROGEN 4 mg/dL (7-17); CHLORIDE 102 mmol/L (98-107); Calcium 8.1 mg/dL (8.4-10.2); Carbon Dioxide 26 mmol/L (22-30); EST GLOMERULAR FILTRATION RATE > 60.0 ML/MIN; Glucose 133 mg/dL (74-106); LIPASE 1336 U/L (23-300); Potassium 3.1 mmol/L (3.5-5.1); SGOT/AST 37 U/L (14-36); SGPT/ALT 59 U/L (0-35); SODIUM 138 mmol/L (137-145); Total Protein 6.3 g/dL (6.3-8.2)
[2023-01-28 07:43] LABS: Slide Review YES
[2023-01-28] MEDS: Sodium Chloride 0.9% W/ 20 mEq KCl/LITER 1,000 ML IV SCH ×2 (10:50→20:52)
[2023-01-28] MEDS: Toprol Xl 50 MG PO SCH (10:51)
[2023-01-28] MEDS: Prozac 20 MG PO SCH (10:51)
[2023-01-28] MEDS: PROTONIX 40 MG IV IV SCH (10:51)
[2023-01-29] MEDS: MORPHINE SULFATE 2 MG INJ IV PRN (01:44)
[2023-01-29] MEDS: Sodium Chloride 0.9% W/ 20 mEq KCl/LITER 1,000 ML IV SCH (04:16)
[2023-01-29 05:15] LABS: Hematocrit 26.7 % (35-47); Hemoglobin 8.5 g/dL (12.0-16.0); Mean Cell Volume 69.7 fL (78-100); Mean Corpuscular Hemoglobin 22.2 pg (26-32); Mean Corpuscular Hgb Concent. 31.8 g/dL (32-36); Platelet Count 453 x10^3/uL (150-450); Red Blood Count 3.83 x10^6/uL (4.1-5.4); Red Cell Distribution Width 27.4 % (11.5-14.0); White Blood Count 8.1 x10^3/uL (4.0-10.5)
[2023-01-29 05:26] LABS: ALKALINE PHOSPHATASE 195 U/L (38-126); ANION GAP 10.5 MEQ/L (5-15); CHLORIDE 103 mmol/L (98-107); Calcium 8.3 mg/dL (8.4-10.2); Carbon Dioxide 25 mmol/L (22-30); Creatinine 1 0.44 mg/dL (0.52-1.04); EST GLOMERULAR FILTRATION RATE > 60.0 ML/MIN; Glucose 138 mg/dL (74-106); LIPASE 355 U/L (23-300); Potassium 3.1 mmol/L (3.5-5.1); SGOT/AST 20 U/L (14-36); SGPT/ALT 42 U/L (0-35); SODIUM 135 mmol/L (137-145); Total Protein 6.1 g/dL (6.3-8.2)
[2023-01-29 05:40] LABS: BLOOD UREA NITROGEN 2 mg/dL (7-17)
--- NOTE | 2023-01-29 06:18 | PCM.NOTE ---
Date and Time: 01/29/23612 Subjective Assessment: Late entry for 01/28/23, 0900: She had a BM last night. Not complaining of any pain (denying to nurses) this morning. Decreased c/o pain last night. Last pain meds at 11 pm last night. Her BP 168/94 today, with HR 73. She was sleeping soundly this morning for the aide; did wake enough to answer questions but did not open her eyes. Pt also answers questions for me but is somnolent as well. Denies pain. - Review of Systems Constitutional: No Fever Abdominal/Gastrointestinal: No Vomiting Objective Exam General Appearance: no apparent distress, other (somnolent, but wakes to voice and answers questions) Neurologic Exam: cooperative Skin Exam: normal color, warm, dry, No rash Ears, Nose, Throat Exam: moist mucous membranes Neck Exam: normal inspection Respiratory Exam: normal breath sounds, lungs clear, No crackles/rales, No rhonchi, No wheezing Cardiovascular Exam: regular rate/rhythm, normal heart sounds, No murmur Gastrointestinal/Abdomen Exam: soft, normal bowel sounds, No tenderness, No distention, No mass, No guarding, No rebound Extremity Exam: No pedal edema, No swelling Back Exam: normal inspection, No rash OBJECTIVE DATA Vital Signs: Vital Signs - 24 hr Temp Pulse Resp BP Pulse Ox 01/29/23 04:05 98.2 F 89 21 171/91 95 01/29/23 03:39 22 01/29/23 02:51 98 F 103 H 22 119/75 97 01/28/23 23:43 16 01/28/23 23:00 98.5 F 80 20 180/95 96 01/28/23 20:00 16 01/28/23 19:00 97.9 F 73 16 144/94 91 L 01/28/23 16:00 17 01/28/23 15:00 97.7 F 80 18 179/90 95 01/28/23 12:00 19 01/28/23 11:00 98.7 F 78 18 175/96 93 L 01/28/23 08:00 19 01/28/23 07:00 97.1 F 73 19 168/94 92 L Pain Assessment - Last Documented Pain Intensity 0 Pain Scale Used 0-10 Pain Scale Intake and Output: Intake & Output 0401/27/23 01/28/23 01/29/23 11:59 11:59 11:59 11:59 Intake Total 5252 3523 2951 390 Output Total 1500 2100 3400 3450 Balance 3726 1428 -445 451 Weight 77.2 kg 77.2 kg 77.2 kg Lab Results: Lab Results-Last 24 Hours 01/27/23 01/28/23 01/28/23 Range/Units 05:10 06:54 06:54 WBC 8.3 (4.0-10.5) x10^3/uL RBC 4.02 L (4.1-5.4) x10^6/uL Hgb 8.9 L (12.0-16.0) g/dL Hct 28.4 L (35-47) % MCV 70.6 L (78-100) fL MCH 22.1 L (26-32) pg MCHC 31.3 L (32-36) g/dL RDW 26.6 H (11.5-14.0) % Plt Count 458 H (150-450) x10^3/uL MPV 8.7 (7.5-11.0) fL Sodium 138 (137-145) mmol/L Potassium 3.1 L (3.5-5.1) mmol/L Chloride 102 (98-107) mmol/L Carbon Dioxide 26 (22-30) mmol/L Anion Gap 12.8 (5-15) MEQ/L BUN 4 L (7-17) mg/dL Creatinine 0.40 L (0.52-1.04) mg/dL Estimated GFR > 60.0 ML/MIN Glucose 133 H (74-106) mg/dL Calcium 8.1 L (8.4-10.2) mg/dL Total Bilirubin 0.90 (0.2-1.3) mg/dL AST 37 H (14-36) U/L ALT 59 H (0-35) U/L Alkaline Phosphatase 217 H (38-126) U/L Serum Total Protein 6.3 (6.3-8.2) g/dL Albumin 3.1 L (3.5-5.0) g/dL Lipase 1336 H (23-300) U/L Total T3 86 (71-180) ng/dL Slides for Path Review YES 01/29/23 01/29/23 Range/Units 04:46 04:46 WBC 8.1 (4.0-10.5) x10^3/uL RBC 3.83 L (4.1-5.4) x10^6/uL Hgb 8.5 L (12.0-16.0) g/dL Hct 26.7 L (35-47) % MCV 69.7 L (78-100) fL MCH 22.2 L (26-32) pg MCHC 31.8 L (32-36) g/dL RDW 27.4 H (11.5-14.0) % Plt Count 453 H (150-450) x10^3/uL MPV 9.0 (7.5-11.0) fL Sodium 135 L (137-145) mmol/L Potassium 3.1 L (3.5-5.1) mmol/L Chloride 103 (98-107) mmol/L Carbon Dioxide 25 (22-30) mmol/L Anion Gap 10.5 (5-15) MEQ/L BUN 2 L (7-17) mg/dL Creatinine 0.44 L (0.52-1.04) mg/dL Estimated GFR > 60.0 ML/MIN Glucose 138 H (74-106) mg/dL Calcium 8.3 L (8.4-10.2) mg/dL Total Bilirubin 0.60 (0.2-1.3) mg/dL AST 20 (14-36) U/L ALT 42 H (0-35) U/L Alkaline Phosphatase 195 H (38-126) U/L Serum Total Protein 6.1 L (6.3-8.2) g/dL Albumin 3.0 L (3.5-5.0) g/dL Lipase 355 H (23-300) U/L Total T3 (71-180) ng/dL Slides for Path Review Radiology Exams: Radiology Procedures Category Date Time Status ABDOMINAL-LIMITED [US] Routine Exams 01/27/23 08:00 Completed Multi-Disciplinary Progress Notes: Multi-Disciplinary Progress Notes 01/28/23 15:40 Physical Therapy Note by Artemio(Andrew#[id number]),Rosa M PT. WAS SEEN BY P.T. THIS A.M. REPORTS NO C/O PN. STILL SLEEPY UPON P.T. ARRIVAL TO ROOM. PT. NPO FOR PROCEDURE THIS AFTERNOON. PT. AGREEABLE TO PARTICIPATE IN P.T. PERFORMED SUPINE TO SIT W/ CGA-MIN ASSIST TO MOVE R LE AND TO ASSIST W/ MOVING TRUNK TO UPRIGHT W/ HOB ELEVATED. PT. ABLE TO SIT ON SIDE OF BED W/ SBA. PERFORMED SIT TO STAND W/ CGA W/ ROLLATOR IN FRONT OF HER; NEEDS ASSIST TO PLACE R HAND ON WALKER D/T LIMITED FINGER EXTENSION R HAND D/T OLD CVA. PT. 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 PT. AMBULATED 80' W/ ROLLATOR AND CLOSE CGA. NOTED R FOOT EVERSION AND DECREASED FOOT CLEARANCE AND STRIDE LENGTH. PT. ABLE TO IMPROVE THIS W/ V.C. NO DIZZINESS NOTED W/ POSITION CHANGES. O2 SATS WNL ON RA. PT. PERFORMED SEATED LE EX'S OF ANKLE PUMPS, HEEL SLIDES, ABD SLIDES, LAQS, AND MARCHES. PT. REQUIRES V.C AND TACTILE CUES TO EXECUTE D/T SOME DIFFICULTY FOLLOWING COMMANDS LIKELY D/T OLD CVA. PLAN IS TO D/C HOME W/ 24-HOUR SUPERVISION OF FAMILY AND HHC UPON D/C. FAMILY NOT INTERESTED IN REHAB STAY AT THIS TIME. WILL CONT. P.T. 5X/WK UNTIL D/C. Initialized on 01/28/23 15:40 - END OF NOTE 01/28/23 12:21 Case Management Note by Carleen GarciaAD[facility]OFemi UNABLE TO SERVE PATIENT D/T AVAILABILITY. S/W KIANA ABOUT OTHER OPTIONS- REFERRAL EMAILED TO [facility] Initialized on 01/28/23 12:21 - END OF NOTE 01/28/23 09:47 Case Management Note by Carleen Garcia S/W NEPHEW KIANA- HE REPORTS HE HAS BEEN IN CONTACT WITH DR CAMPOS AND IS AWARE OF PATIENT'S CONFUSION AT NIGHT. HE CONTINUES TO PLAN FOR PATIENT TO RETURN HOME WITH [facility] AT TIME OF DC. HE WAS NOTIFIED THAT PHYSICAL THERAPY RECOMMENDED SOME HHC. HE WAS AGREEABLE TO THIS. WILL SEND REFERRAL Initialized on 01/28/23 09:47 - END OF NOTE 01/28/23 09:46 Case Management Note by Carleen Garcia REFERRAL FAXED TO [facility] PER FAMILY REQUEST ( THEY WERE GIVEN OPTIONS IN THEIR AREA OF SERVICES- [facility] IS THEIR FIRST CHOICE) Initialized on 01/28/23 09:46 - END OF NOTE Assessment/Plan (1) Acute pancreatitis Current Visit: Yes Status: Resolved Qualifiers: Pancreatitis type: idiopathic Acute pancreatitis complication: unspecified Qualified Code(s): K85.00 - Idiopathic acute pancreatitis without necrosis or infection Assessment & Plan: Her lipase is way up this morning, >1300. She has been on regular diet. Her Tbili continues to be normal; AST, ALT, and AP, although down from several days ago, are still elevated from admission. Will order MRCP to further evaluate pancrease and possible obstruction. Change diet to CLD and increase IVF to 150/hr and add 20mEq K+ to each liter. Recheck labs in a.m. Code(s): K85.90 - ACUTE PANCREATITIS WITHOUT NECROSIS OR INFECTION, UNSP (2) Hx of completed stroke Current Visit: No Status: Chronic Code(s): Z86.73 - PRSNL HX OF TIA (TIA), AND CEREB INFRC W/O RESID DEFICITS (3) Anemia Current Visit: No Status: Chronic Qualifiers: Anemia type: iron deficiency Iron deficiency anemia type: chronic blood loss Qualified Code(s): D50.0 - Iron deficiency anemia secondary to blood loss (chronic) Code(s): D64.9 - ANEMIA, UNSPECIFIED (4) Atrial fibrillation Current Visit: No Status: Chronic Qualifiers: Atrial fibrillation type: longstanding persistent Qualified Code(s): I48.11 - Longstanding persistent atrial fibrillation Code(s): I48.91 - UNSPECIFIED ATRIAL FIBRILLATION (5) Vascular dementia Current Visit: No Status: Suspected Qualifiers: Dementia severity: moderate Dementia behavioral or psychological symptom: with anxiety Qualified Code(s): F01.B4 - Vascular dementia, moderate, with anxiety Code(s): F01.50 - VASCULAR DEMENTIA, UNSP SEVERITY, WITHOUT BEH/PSYCH/MOOD/ANX (6) Elevated liver enzymes Current Visit: Yes Status: Acute Code(s): R74.8 - ABNORMAL LEVELS OF OTHER SERUM ENZYMES (7) Hypokalemia Current Visit: Yes Status: Acute Code(s): E87.6 - HYPOKALEMIA
[2023-01-29] MEDS: Piperacillin/Tazobactam 2.25 GM 2.25 GM in Sodium Chloride 100ML MINI-BAG PLUS 100 ML IV SCH ×2 (07:34→12:37)
[2023-01-29] MEDS ORDERED: Zestril 5 MG PO SCH (10:00)
[2023-01-29] MEDS ORDERED: Protonix 40MG Tablet PO SCH (10:00)
[2023-01-29] MEDS: Prozac 20 MG PO SCH (10:08)
[2023-01-29] MEDS: Toprol Xl 50 MG PO SCH (10:08)
--- NOTE | 2023-01-29 11:41 | PCM.DS ---
Discharge Summary Date of Admission: 01/24/23 13:00 Admitting Physician: VALERIA JO Primary Care Provider: VALERIA JO Allergies Allergies No Known Drug Allergies Allergy (Verified 01/24/23 10:56) Hospital Summary - Hospital Course Hospital Course: Pt is 72 yo female pt of mine with afib and hx gastric bypass surgery who was admitted through ER with pancreatitis. She had been having abd pain. Her lipase was > 500. The next day, her Tbili, AST, ALT, and Alk Phos were all quite elevated, and have gone down throughout her stay unitl the AST is actually normal today (Tbili normalized several days ago). Thought pt was going to be able to discharge to home yesterday, but her lipase was >1300. Today is it just over 300, and she is feeling great, so I will send her home on full liquid diet to advance slowly over the next week. She is walking well with standby assist. Her last hospital admission was for bradycardia. We had stopped her cardizem and decreased her toprol dose. I did have to increase her toprol from 25 to 50mg/d during her stay and her HR has been controlled. Her BP has been up quite a bit so I did add lisinopril. She has been on zosyn throughout this stay. If her procalcitonin this morning is okay, will not send her home on antibiotic (otherwise, will go on augmentin). - Vitals & Intake/Output Vital Signs: Vital Signs Temperature 98.0 F 01/29/23 08:00 Pulse Rate 81 01/29/23 08:00 Respiratory Rate 15 01/29/23 08:00 Blood Pressure 177/98 01/29/23 08:00 O2 Sat by Pulse Oximetry 92 L 01/29/23 08:00 Intake & Output: Intake & Output 01/26/23 01/27/23 01/28/23 01/29/23 11:59 11:59 11:59 11:59 Intake Total 5233 3529 2955 4208 Output Total 7709 5635 3400 6434 Balance 0246 3354 -198 -4873 Weight 77.2 kg 77.2 kg 77.2 kg 77.2 kg - Lab Result Diagrams: 01/29/23 04:46 01/29/23 04:46 Lab Results-Last 24 Hrs: Lab Results-Last 24 Hours 01/29/23 01/29/23 Range/Units 04:46 04:46 WBC 8.1 (4.0-10.5) x10^3/uL RBC 3.83 L (4.1-5.4) x10^6/uL Hgb 8.5 L (12.0-16.0) g/dL Hct 26.7 L (35-47) % MCV 69.7 L (78-100) fL MCH 22.2 L (26-32) pg MCHC 31.8 L (32-36) g/dL RDW 27.4 H (11.5-14.0) % Plt Count 453 H (150-450) x10^3/uL MPV 9.0 (7.5-11.0) fL Sodium 135 L (137-145) mmol/L Potassium 3.1 L (3.5-5.1) mmol/L Chloride 103 (98-107) mmol/L Carbon Dioxide 25 (22-30) mmol/L Anion Gap 10.5 (5-15) MEQ/L BUN 2 L (7-17) mg/dL Creatinine 0.44 L (0.52-1.04) mg/dL Estimated GFR > 60.0 ML/MIN Glucose 138 H (74-106) mg/dL Calcium 8.3 L (8.4-10.2) mg/dL Total Bilirubin 0.60 (0.2-1.3) mg/dL AST 20 (14-36) U/L ALT 42 H (0-35) U/L Alkaline Phosphatase 195 H (38-126) U/L Serum Total Protein 6.1 L (6.3-8.2) g/dL Albumin 3.0 L (3.5-5.0) g/dL Lipase 355 H (23-300) U/L Micro Results-Entire Visit: Microbiology 01/24/23 11:37 Blood Culture - Final Blood NO GROWTH 01/24/23 11:37 Blood Culture - Final Blood NO GROWTH 01/24/23 10:28 Urine Culture - Final Clean Catch Midstream <10K NORMAL SKIN JESE PROBABLE SKIN CONTAMINANT - Procedures and Test Procedures and Tests throughout Hospitalization: Therapy Orders & Screens 01/24/23 13:54 Respiratory Therapy Assessment ONCE Comment: Diagnosis: ACute pancreatitis 01/27/23 09:14 PT Eval & Treat ( Order) ONCE Reason for Eval:: Pt lives at home but with caregiver present most of the time Diagnosis: ACute pancreatitis Discharge Exam General Appearance: no apparent distress, alert Neurologic Exam: cooperative, normal mood/affect, other (sitting up in chair) Eye Exam: eyes nml inspection Ears, Nose, Throat Exam: moist mucous membranes Neck Exam: normal inspection Respiratory Exam: normal breath sounds, lungs clear, No crackles/rales, No rhonchi, No wheezing Cardiovascular Exam: normal heart sounds, irregular, other (reg rate), No murmur Gastrointestinal/Abdomen Exam: soft, normal bowel sounds, No tenderness, No distention, No mass, No guarding, No rebound Extremity Exam: normal inspection, No pedal edema, No swelling Skin Exam: normal color, warm, dry, No rash Final Diagnosis/Problem List - Final Discharge Diagnosis/Problem (1) Acute pancreatitis Current Visit: Yes Status: Acute Assessment & Plan: Doing much better. She does have a remote history of drinking. Was some concern for obstruction, but her numbers are improving. Recheck CMP in 1 week. Continue with liquid diet for now and advance slowly over the next 1 week. I have discussed with family. Discharge to home today. Code(s): K85.90 - ACUTE PANCREATITIS WITHOUT NECROSIS OR INFECTION, UNSP (2) Hx of completed stroke Current Visit: No Status: Chronic Code(s): Z86.73 - PRSNL HX OF TIA (TIA), AND CEREB INFRC W/O RESID DEFICITS (3) Anemia Current Visit: No Status: Chronic Assessment & Plan: Did receive blood here. Stable now. Code(s): D64.9 - ANEMIA, UNSPECIFIED (4) Atrial fibrillation Current Visit: No Status: Chronic Code(s): I48.91 - UNSPECIFIED ATRIAL FIBRILLATION (5) Vascular dementia Current Visit: No Status: Suspected Code(s): F01.50 - VASCULAR DEMENTIA, UNSP SEVERITY, WITHOUT BEH/PSYCH/MOOD/ANX (6) Elevated liver enzymes Current Visit: Yes Status: Acute Code(s): R74.8 - ABNORMAL LEVELS OF OTHER SERUM ENZYMES (7) Hypokalemia Current Visit: Yes Status: Chronic Assessment & Plan: recheck in 1 week. Home on home dose of potassium, 20 mEq daily. Code(s): E87.6 - HYPOKALEMIA - Discharge Disposition: Home, Self-Care Condition: Stable Prescriptions: New Metoprolol Succinate 50 mg [Toprol Xl 50 MG] 50 mg PO DAILY #90 tablet Lisinopril 5 mg [Zestril 5 MG] 5 mg PO DAILY #30 tablet Continue PANTOPRAZOLE 40 mg Tablet [Protonix 40MG Tablet] 40 mg PO DAILY Ondansetron ODT 4 MG [Zofran Odt 4 mg] 4 mg PO UD PRN PRN Reason: Nausea Melatonin 5 mg PO HS Furosemide 20 mg [Lasix 20 mg] 20 mg PO DAILY Fluoxetine HCl 40 mg pe PO DAILY Docusate Sodium 100 mg [Docusate Sodium 100 MG] 100 mg PO DAILY PRN PRN Reason: Constipation Atorvastatin Calcium 10 mg PO DAILY Apixaban [Eliquis] 5 mg PO BID Potassium Chloride 20 meq PO DAILY #30 tablet Famotidine [Pepcid] 40 mg PO DAILY Discontinued Metoprolol Succinate 25 mg Xl* [Toprol-Xl 25MG Tablets] 25 mg PO DAILY #30 tab Follow up with: VALERIA JO [Primary Care Provider] - 02/04/23 3:00 pm
[2023-01-29] MEDS ORDERED: Klor Con PO SCH (12:06)
[2023-01-29 12:40] VITALS: BP 191/105; PULSE 80; O2SAT 94
== END 2023-01-29 14:28 | disposition home health service (06) ==
LOC: ED 09:20 → MED SURG 13:00
PROVIDERS: ADMIT Family Medicine; ATTEND Family Medicine
DX: K85.90 Acute pancreatitis without necrosis or infection, unspecified (principal); Z86.73 Personal history of transient ischemic attack (TIA), and cerebral infarction without residual deficits; D64.9 Anemia, unspecified; I48.91 Unspecified atrial fibrillation; F01.50 Vascular dementia, unspecified severity, without behavioral disturbance, psychotic disturbance, mood disturbance, and anxiety; R74.8 Abnormal levels of other serum enzymes; E87.6 Hypokalemia; I12.9 Hypertensive chronic kidney disease with stage 1 through stage 4 chronic kidney disease, or unspecified chronic kidney disease; I50.9 Heart failure, unspecified; N18.9 Chronic kidney disease, unspecified; E78.5 Hyperlipidemia, unspecified; D72.829 Elevated white blood cell count, unspecified; Z20.828 Contact with and (suspected) exposure to other viral communicable diseases; Z79.01 Long term (current) use of anticoagulants; Z79.899 Other long term (current) drug therapy
CPT/HCPCS: 36000; 36415; 36430; 51702; 74176; 76705; 80053; 81001; 82150; 82607; 83605; 83690; 83735; 84132; 84145; 84439; 84443; 84480; 84484; 85014; 85018; 85025; 85027; 86850; 86900; 86901; 86922; 87040; 87086; 93005; 96365; 96374; 96375; 97110; 97161; 97530; 99285; P9016; J2270; J2405; J2543; J3010; J3480; A9270-GY